=== PATIENT | female | born 1930 | race Caucasian/White ===

== ENCOUNTER 2018-02-09 17:32 | Inpatient (IN) | payer OTHER, BC ==
--- NOTE | 2018-02-09 18:08 | PDOC ---
Attending Attestation - Resident Resident Name: Maria C Chaney - ED Attending Attestation I have performed the following: I have examined & evaluated the patient, The case was reviewed & discussed with the resident, I agree w/resident's findings & plan, Exceptions are as noted - Physicial Exam PE: 02/09/18 19:43 Patient is awake and alert, frail-appearing, in mild distress; Normocephalic, atraumatic EOMI, conjunctiva are pink CTA Irregularly irregular Soft, nontender, nondistended Pelvis is stable Left lower extremity is shortened and externally rotated with pain on log roll and hip extension; + ttp along proximal femur. neurovascularly intact distally; - Medical Decision Making 02/09/18 19:45 Patient is a frail-appearing 87-year-old female with multiple comorbidities, history of atrial fibrillation on Coumadin who presented with left leg pain and deformity status post mechanical fall. In the ER, patient is awake and alert, hemodynamically stable. CT of head shows increased density along left tentorium which is unlikley traumatic. Pelvic and left hip x-rays show a displaced intratrochanteric fracture. We'll consult orthopedics. Will Place Casanova catheter and will control pain with parenteral morphine. Will hydrate. Will admit. case discussed with ortho PA. will keep npo. ORIF pending clearence. <Alhaji Yeboah - Last Filed: 02/09/18 20:03> - HPI HPI: 02/09/18 18:44 The patient is an 87 year old female with significant past medical history of A- Fib (on Coumadin in 2015, as per EMR), HLD, HTN, and CKD brought in by EMS to the ED s/p fall. The patient reports walking up a hill and fell backwards. The patient is unsure if she hit her head upon fall. She denies cp, headache, dizziness, fevers, chills, abdominal pain, nausea, vomiting, diarrhea, and constipation. She denies any changes in bowel movements or urination. - Medical Decision Making Consulted with JASMIN Corona at 19:50. Consulted with Dr. Worthy at 20:07. <Morales Gannon - Last Filed: 02/09/18 20:08> Attestations - Attestations Documentation prepared by Morales Gannon, acting as medical staff services coordinator for Alhaji Yeboah MD. <Morales Gannon - Last Filed: 02/09/18 20:08>
[2018-02-09 18:09] VITALS: BMI 21.6
--- NOTE | 2018-02-09 18:11 | PDOC ---
History of Present Illness - General History Source: Patient - History of Present Illness Initial Comments: 02/09/18 18:09 87 year old female with a PMH of AFib (as per EMR on Coumadin in 2014), HTN, HLD and CKD presents to our ED presents following a fall. Patient states she was walking uphill when she fell backwards - unsure of head trauma. Notes passerby called EMS. Patient denies chest pain, headache or dizziness. Patient denies fever, chills, abdominal pain, nausea, vomit, diarrhea or constipation. Patient denies dysuria, frequency, urgency or hematuria. Patient denies sick contacts or recent travel. Allergy: Penicillin <Maria C Chaney - Last Filed: 02/09/18 20:16> <Alhaji Yeboah - Last Filed: 02/10/18 00:15> - General Chief Complaint: Injury Stated Complaint: FALL Past History - Past Medical History Cardiac Disorders: Yes (AF) HTN: Yes - Immunization History Td Vaccination: Yes - Suicide/Smoking/Psychosocial Hx Smoking Status: No Smoking History: Never smoked Number of Cigarettes Smoked Daily: 0 Hx Alcohol Use: No Drug/Substance Use Hx: No Substance Use Type: None <Maria C Chaney - Last Filed: 02/09/18 20:16> <Alhaji Yeboah - Last Filed: 02/10/18 00:15> - Past Medical History Allergies/Adverse Reactions: Allergies Allergy/AdvReac Type Severity Reaction Status Date / Time Penicillins Allergy Verified 02/09/18 18:06 Home Medications: Ambulatory Orders Atenolol [Tenormin -] 50 mg PO DAILY 05/18/15 Atorvastatin Ca [Lipitor] 10 mg PO HS 05/18/15 Calcium Carbonate [Caltrate 600] 600 mg PO DAILY 05/18/15 Folic Acid/Multivit-Min/Lutein [Centrum Silver Chewable Tablet] 1 each PO DAILY 05/18/15 Isosorbide Mononitrate [Imdur -] 60 mg PO DAILY 05/18/15 Loratadine [Claritin -] 10 mg PO DAILY 05/18/15 Pantoprazole Sodium [Protonix] 40 mg PO DAILY 05/18/15 Warfarin Sodium [Coumadin] 3 mg PO DAILY 05/18/15 Review of Systems - Review of Systems Constitutional: No: Fever, Night Sweats HEENTM: No: Recent change in vision Respiratory: No: Cough, Shortness of Breath Cardiac (ROS): No: Chest Pain ABD/GI: No: Constipated, Nausea, Vomiting : No: Burning, Dysuria <Maria C Chaney - Last Filed: 02/09/18 20:16> *Physical Exam - Physical Exam Comments: 02/09/18 18:38 General: Alert, pelvis stable CV: S1/S2 Respiratory: non-labored respirations, CLTA B/L Abdomen: soft, non-tender MSK: LLE externally rotated/shortened w/1+ dorsalis pedis pulse, limited ROM; no midline spinal tenderness, full ROM of B/L UE Neuro: A&O x3, intact UE DTR's <Maria C Chaney - Last Filed: 02/09/18 20:16> - Vital Signs Last Vital Signs Temp Pulse Resp BP Pulse Ox 98 F 60 18 145/81 99 02/09/18 17:32 02/09/18 17:32 02/09/18 17:32 02/09/18 17:32 02/09/18 17:32 <Alhaji Yeboah - Last Filed: 02/10/18 00:15> ED Treatment Course - LABORATORY CBC & Chemistry Diagram: 02/09/18 18:00 02/09/18 18:00 <Maria C Chaney - Last Filed: 02/09/18 20:16> - LABORATORY CBC & Chemistry Diagram: 02/09/18 18:00 02/09/18 18:00 - ADDITIONAL ORDERS Additional order review: Laboratory Results 02/09/18 02/09/18 02/09/18 Unknown 18:00 18:00 PT with INR INR PTT (Actin FS) Sodium 134 L Potassium 4.4 Chloride 101 Carbon Dioxide 26 Anion Gap 7 L BUN 29 H Creatinine 1.3 H Creat Clearance w eGFR 38.57 Random Glucose 111 H Calcium 8.7 Total Bilirubin 0.8 AST 31 ALT 30 Alkaline Phosphatase 107 Total Protein 6.5 Albumin 3.5 Urine Color Yellow Urine Appearance Clear Urine pH 6.0 Ur Specific [place] 1.012 Urine Protein Negative Urine Glucose (UA) Negative Urine Ketones Negative Urine Blood 2+ H Urine Nitrite Negative Urine Bilirubin Negative Urine Urobilinogen Negative Ur Leukocyte Esterase 1+ H Urine WBC (Auto) 8 Urine RBC (Auto) 14 Ur Epithelial Cells Rare Blood Type A POSITIVE Antibody Screen Negative 02/09/18 18:00 PT with INR 22.30 H INR 1.97 H PTT (Actin FS) 37.7 H Sodium Potassium Chloride Carbon Dioxide Anion Gap BUN Creatinine Creat Clearance w eGFR Random Glucose Calcium Total Bilirubin AST ALT Alkaline Phosphatase Total Protein Albumin Urine Color Urine Appearance Urine pH Ur Specific [place] Urine Protein Urine Glucose (UA) Urine Ketones Urine Blood Urine Nitrite Urine Bilirubin Urine Urobilinogen Ur Leukocyte Esterase Urine WBC (Auto) Urine RBC (Auto) Ur Epithelial Cells Blood Type Antibody Screen 02/09/18 18:00 RBC 3.84 MCV 102.1 H MCHC 34.3 RDW 15.1 MPV 9.7 Neutrophils % 73.0 D Lymphocytes % 10.2 D Monocytes % 13.4 H Eosinophils % 2.9 Basophils % 0.5 - Medications Given in the ED: ED Medications Discontinued Medications Generic Name Dose Route Start Last Admin Trade Name Freq PRN Reason Stop Dose Admin Morphine Sulfate 2 mg 02/09/18 19:24 02/09/18 19:39 Morphine Sulfate IVPUSH 02/09/18 19:25 2 mg ONCE ONE Administration Sodium Chloride 1,000 ml 02/09/18 19:24 02/09/18 19:39 Normal Saline - IV 02/09/18 19:25 1,000 ml ONCE ONE Administration <Alhaji Yeboah - Last Filed: 02/10/18 00:15> Medical Decision Making - Medical Decision Making 02/09/18 18:19 87 year old female presents following @ fall -- likely mechanical. At presentation LLE shortened and externally rotated, 1+ dorsalis pedis pulse. Will CT head + C-spine, XR pelvis, LLE. Patient declines pain control. 02/09/18 20:04 Wet read of XR shows L trochanteric fracture; will hydrate and plan for admission for ORIF likely in 48-72 hours as patient on Warfarin 2/2 to AFib 02/09/18 20:11 Case d/w Dr. Juan Johnson, Imaging vehicle fuel systems converter, dense area on CT @ tentorium unlikely to be acute bleed, likely to be calcification 2/2 to age related changes. Patient signed out to Dr. Yeboah - patient admitted to hospitalist medicine service with consults pending to ortho and cardiology. <Maria C Chaney - Last Filed: 02/09/18 20:16> *DC/Admit/Observation/Transfer <ShivMaria C - Last Filed: 02/09/18 20:16> - Discharge Dispostion Admit: Yes <Alhaji Yeboah - Last Filed: 02/10/18 00:15> Diagnosis at time of Disposition: Hip fracture Qualifiers: Encounter type: initial encounter Fracture type: closed Laterality: left Qualified Code(s): S72.002A - Fracture of unspecified part of neck of left femur , initial encounter for closed fracture - Discharge Dispostion Condition at time of disposition: Fair
[2018-02-09 18:20] LABS: BASO % 0.5 % (0-2.0); EOS % 2.9 % (0-4.5); HEMATOCRIT 39.3 % (32.4-45.2); HEMOGLOBIN 13.5 GM/dL (10.7-15.3); LYMPH % 10.2 % (8-40); MCHC 34.3 g/dl (32.0-36.0); MEAN CELL VOLUME 102.1 fl (80-96); MEAN PLT VOLUME 9.7 fl (7.5-11.1); MONO % 13.4 % (3.8-10.2); PLATELET COUNT 136 K/MM3 (134-434); RBC 3.84 M/mm3 (3.60-5.2); RDW 15.1 % (11.6-15.6); WHITE BLOOD COUNT 7.9 K/mm3 (4.0-10.0)
[2018-02-09 18:32] LABS: INR 1.97 (0.82-1.09); PROTHROMBIN TIME (PATIENT) 22.3 SEC (9.7-13.0)
[2018-02-09 18:35] LABS: ACTIVATED PTT 37.7 SECONDS (26.9-34.4)
[2018-02-09 19:00] LABS: ALBUMIN 3.5 g/dl (3.4-5.0); ALK PHOS 107 U/L (45-117); ANION GAP 7 (8-16); BILIRUBIN,TOTAL 0.8 mg/dL (0.2-1.0); BLOOD UREA NITROGEN 29 mg/dL (7-18); CALCIUM 8.7 mg/dL (8.5-10.1); CHLORIDE 101 mmol/L (98-107); CO2 26 mmol/L (21-32); CREATININE 1.3 mg/dL (0.55-1.02); GLUCOSE,RANDOM 111 mg/dL (74-106); POTASSIUM 4.4 mmol/L (3.5-5.1); SGOT/AST 31 U/L (15-37); SGPT/ALT 30 U/L (12-78); SODIUM 134 mmol/L (136-145); TOT PROT 6.5 g/dl (6.4-8.2)
[2018-02-09] MEDS ORDERED: morphine CARPU-JECT 8 MG/1 ML DISP.SYRIN IVPUSH ONE (19:24)
[2018-02-09] MEDS ORDERED: SODIUM CHLORIDE 0.9% 500 ML INFUS.BAG IV ONE (19:24)
[2018-02-09] MEDS ORDERED: morphine SULFATE 4 MG/ML VIAL ONE (19:27)
[2018-02-09 20:06] LABS: URINE APPEARANCE CLEAR; URINE BILIRUBIN NEGATIVE (<2.0 mg/dL); URINE COLOR YELLOW; URINE GLUCOSE (UA) NEGATIVE (NEGATIVE); URINE KETONE NEGATIVE (NEGATIVE); URINE NITRITE NEGATIVE (NEGATIVE); URINE PROTEIN NEGATIVE (NEGATIVE); URINE UROBILINOGEN NEGATIVE mg/dL (0.2-1.0)
--- NOTE | 2018-02-09 20:26 | HP ---
Admitting History and Physical - Primary Care Physician PCP: Karina Kelley - Admission Chief Complaint: s/p Mechanical Fall, L- Hip Pain History of Present Illness: This is a 87 y/o woman with PMH: Afib (on Coumadin), HTN, HLD, CKD, [place]. Who presents to the ED s/p mechanical fall with L-hip pain, unable to bear weight. Patient reports while going uphill she fell backwards hitting her head. Patient denies LOC, blurred vision and dizziness. Patient reports since the fall being non-weight bearing, pain to her L- hip increased with movement. Patient denies numbness or parasthesias. Patient expressed concerns for her aged sister, that she is caring for. Last TD unknown History Source: Patient Limitations to Obtaining History: Physical Impairment (SAULT [place]) - Past Medical History Cardiovascular: Yes: AFIB, CHF, HTN, Hyperlipdemia Renal/: Yes: Renal Inusuff Heme/Onc: Yes: Anemia Musculoskeletal: Yes: Osteoarthritis - Past Surgical History Past Surgical History: Yes: Cholecystectomy - Smoking History Smoking history: Never smoked Have you smoked in the past 12 months: No Aproximately how many cigarettes per day: 0 - Alcohol/Substance Use Hx Alcohol Use: No History of Substance Use: reports: None - Social History Usual Living Arrangement: Yes: Other (With sister) ADL: Independent History of Recent Travel: No Home Medications - Allergies Allergies/Adverse Reactions: Allergies Allergy/AdvReac Type Severity Reaction Status Date / Time Penicillins Allergy Verified 02/09/18 18:06 - Home Medications Home Medications: Ambulatory Orders Atenolol [Tenormin -] 50 mg PO DAILY 05/18/15 Atorvastatin Ca [Lipitor] 10 mg PO HS 05/18/15 Calcium Carbonate [Caltrate 600] 600 mg PO DAILY 05/18/15 Folic Acid/Multivit-Min/Lutein [Centrum Silver Chewable Tablet] 1 each PO DAILY 05/18/15 Isosorbide Mononitrate [Imdur -] 60 mg PO DAILY 05/18/15 Loratadine [Claritin -] 10 mg PO DAILY 05/18/15 Pantoprazole Sodium [Protonix] 40 mg PO DAILY 05/18/15 Warfarin Sodium [Coumadin] 3 mg PO DAILY 05/18/15 Family Disease History - Family Disease History Family History: Unremarkable Review of Systems - Review of Systems Constitutional: reports: No Symptoms Eyes: reports: No Symptoms HENT: reports: No Symptoms Neck: reports: No Symptoms Cardiovascular: reports: No Symptoms Respiratory: reports: No Symptoms Gastrointestinal: reports: No Symptoms Genitourinary: reports: No Symptoms Breasts: reports: No Symptoms Reported Musculoskeletal: reports: Extremity Pain, Joint Pain Integumentary: reports: No Symptoms Neurological: reports: No Symptoms Endocrine: reports: No Symptoms Hematology/Lymphatic: reports: No Symptoms Psychiatric: reports: No Symptoms Physical Examination Vital Signs: Vital Signs Temperature 98 F 02/09/18 17:32 Pulse Rate 60 02/09/18 17:32 Respiratory Rate 18 02/09/18 17:32 Blood Pressure 145/81 02/09/18 17:32 O2 Sat by Pulse Oximetry (%) 99 02/09/18 17:32 Constitutional: Yes: No Distress, Calm, Thin Eyes: Yes: Conjunctiva Clear, EOM Intact, PERRL HENT: Yes: WNL, Atraumatic, Normocephalic, Other (TN to occiput) Neck: Yes: WNL, Supple, Trachea Midline Cardiovascular: Yes: Pulse Irregular, Murmur, S1, S2 Respiratory: Yes: Rhonchi Gastrointestinal: Yes: WNL, Normal Bowel Sounds, Soft ...Rectal Exam: Yes: Deferred Renal/: Yes: WNL Breast(s): Yes: WNL Musculoskeletal: Yes: Other (lateral L- hip pain) Extremities: Yes: External Rotation, Shortened Edema: No Peripheral Pulses WNL: Yes Integumentary: Yes: Skin Tear (left elbow) Wound/Incision: Yes: Other (dressing with dried serous drainage) Neurological: Yes: WNL, Alert, Oriented, Cran Nerves II-XII Intact. No: Loss of Sensation, Numbness, Paresthesia, Tingling ...Motor Strength: LUE, RUE, RLE Psychiatric: Yes: WNL, Alert, Oriented Labs: CBC, BMP 02/09/18 18:00 02/09/18 18:00 Current Medications Generic Name Dose Route Start Last Admin Trade Name Freq PRN Reason Stop Dose Admin Dextrose/Sodium Chloride 1,000 mls @ 100 mls/hr 02/09/18 20:30 02/10/18 05:52 D5-1/2ns - IV 100 mls/hr ASDIR ALAN Administration Morphine Sulfate 2 mg 02/09/18 20:36 02/10/18 02:00 Morphine Sulfate IVPUSH 2 mg Q4H PRN Administration PAIN LEVEL 6-10 Intake & Output 02/07/18 02/08/18 02/09/18 02/10/18 23:59 23:59 23:59 23:59 Intake Total 0 800 Output Total 900 Balance 0 -100 Weight 58.967 kg 58.967 kg Imaging - Results Chest X-ray: Image Reviewed X-ray: Report Reviewed, Image Reviewed EKG: Image Reviewed Problem List - Problems (1) Hip fracture Assessment/Plan: - Likely secondary to mechanical fall - Ortho following- tentative OR tomorrow - Appreciate Cardiology consult- surgical clearance - Neurovascular checks - Morphine Sulfate prn - Repeat CBC, BMP in am - NPO - Gentle IVF - Hold Coumadin Code(s): S72.009A - FRACTURE OF UNSP PART OF NECK OF UNSP FEMUR, INIT Qualifiers: Encounter type: initial encounter Fracture type: closed Laterality: left Qualified Code(s): S72.002A - Fracture of unspecified part of neck of left femur, initial encounter for closed fracture (2) Fall Assessment/Plan: - s/p mechanical fall - Femur Xray- L-intertrochanteric fx, comminuted - Hip/Pelvis- image reviewed - CT Neck- no dislocation, no fx, Grade 1 anterolisthesis C7-T1 likely Chronic - Fall Precautions - Pain Mgmt - Consider STR - Monitor CBC, BMP Code(s): W19.XXXA - UNSPECIFIED FALL, INITIAL ENCOUNTER (3) Afib Assessment/Plan: - EKG- rate controlled - [id number] - INR 1.97 - Hold Coumadin secondary to- OR - Series INRs Code(s): I48.91 - UNSPECIFIED ATRIAL FIBRILLATION (4) HTN (hypertension) Assessment/Plan: - Stable - Monitor BP - Continue home meds - Monitor renal function Code(s): I10 - ESSENTIAL (PRIMARY) HYPERTENSION (5) HLD (hyperlipidemia) Assessment/Plan: - Continue home med Code(s): E78.5 - HYPERLIPIDEMIA, UNSPECIFIED (6) Renal insufficiency Assessment/Plan: - Cr 1.3 at baseline - Continue to monitor BMP - Avoid nephrotoxic drugs Code(s): N28.9 - DISORDER OF KIDNEY AND URETER, UNSPECIFIED (7) Caregiver burden Assessment/Plan: - Patient is the sole caregiver for her aged sister and is concerned about her care - Social Work Consult - Case Management Consult Code(s): Z63.6 - DEPENDENT RELATIVE NEEDING CARE AT HOME (8) DVT prophylaxis Assessment/Plan: - SCDs - Hold Coumadin / pending surgery Code(s): TOS8777 - Assessment/Plan This is a 87 y/o woman PMH Afib (on Coumadin), HLD, HTN, CKD. Admitted for L- Trochanteric Fx. Visit type - Emergency Visit Emergency Visit: Yes ED Registration Date: 02/10/18 Care time: The patient presented to the Emergency Department on the above date and was hospitalized for further evaluation of their emergent condition. - New Patient This patient is new to me today: Yes Date on this admission: 02/10/18 - Critical Care Critical Care patient: No Hospitalist Screening - Colonoscopy Questionnaire Colonoscopy Questionnaire: Colonoscopy Questionnaire - Patient: 50 - 75 years old and never had a screening colonoscopy: No History of colon or rectal polyps, or CA: No History of IBD, Crohn's disease or UC: No History of abdominal radiation therapy as a child: No - Relative: 1 with colon or rectal CA, or polyps at age 60 or younger: No Colon or rectal CA diagnosed at age 45 or younger: No Multiple relatives with colon or rectal CA: No - Outcome: Screening Result: Negative Screen
[2018-02-09 20:31] LABS: URINE LEUK ESTERASE 1+ (NEGATIVE)
[2018-02-09 20:34] LABS: EPI CELLS RARE /HPF (FEW)
[2018-02-09] MEDS: DEXTROSE 5%-0.45% SALINE 1,000 ML IV SCH (20:35)
[2018-02-09] MEDS ORDERED: morphine SULFATE 4 MG/ML VIAL IVPUSH PRN (20:36)
--- NOTE | 2018-02-10 00:32 | CONSULT ---
Consult Consult Specialty:: orthopedics Reason for Consultation:: left hip - History of Present Illness Chief Complaint: left hip pain x1 day History of Present Illness: 87y/o female c/o left hip pain since yesterday. She fell after losing her balance on the way to the pharmacy and was unable to walk. She came to the ER and was diagnosed with a left hip fracture. Pain is worse with motion and better with rest. No other associated, aggravating or relieving factors. Denies any numbness or tingling. Pain does not radiate. - History Source History Provided By: Patient, Medical Record - Past Medical History Cardio/Vascular: Yes: AFIB, CHF, HTN, Hyperlipdemia Renal/: Yes: Renal Inusuff Musculoskeletal: Yes: Osteoarthritis - Alcohol/Substance Use Hx Alcohol Use: No History of Substance Use: reports: None - Smoking History Smoking history: Never smoked Have you smoked in the past 12 months: No Aproximately how many cigarettes per day: 0 - Social History ADL: Independent History of Recent Travel: No Home Medications - Allergies Allergies/Adverse Reactions: Allergies Allergy/AdvReac Type Severity Reaction Status Date / Time Penicillins Allergy Verified 02/09/18 18:06 - Home Medications Home Medications: Ambulatory Orders Atenolol [Tenormin -] 50 mg PO DAILY 05/18/15 Atorvastatin Ca [Lipitor] 10 mg PO HS 05/18/15 Calcium Carbonate [Caltrate 600] 600 mg PO DAILY 05/18/15 Folic Acid/Multivit-Min/Lutein [Centrum Silver Chewable Tablet] 1 each PO DAILY 05/18/15 Isosorbide Mononitrate [Imdur -] 60 mg PO DAILY 05/18/15 Loratadine [Claritin -] 10 mg PO DAILY 05/18/15 Pantoprazole Sodium [Protonix] 40 mg PO DAILY 05/18/15 Warfarin Sodium [Coumadin] 3 mg PO DAILY 05/18/15 Review of Systems - Review of Systems Constitutional: reports: No Symptoms Eyes: reports: No Symptoms HENT: reports: No Symptoms Neck: reports: No Symptoms Cardiovascular: reports: No Symptoms Respiratory: reports: No Symptoms Gastrointestinal: reports: No Symptoms Genitourinary: reports: No Symptoms Breasts: reports: No Symptoms Reported Musculoskeletal: reports: No Symptoms Integumentary: reports: No Symptoms Neurological: reports: No Symptoms Endocrine: reports: No Symptoms Hematology/Lymphatic: reports: No Symptoms Psychiatric: reports: No Symptoms Physical Exam Vital Signs: Vital Signs Temperature 98 F 02/09/18 17:32 Pulse Rate 60 02/09/18 17:32 Respiratory Rate 18 02/09/18 17:32 Blood Pressure 145/81 02/09/18 17:32 O2 Sat by Pulse Oximetry (%) 99 02/09/18 17:32 Constitutional: Yes: Well Nourished, No Distress, Calm Musculoskeletal: Yes: Other (Left hip: Mild edema of the hip. Mild diffuse tenderness along the groin. Pain with motion of the hip. LLE shortened and externally rotated. Compartments soft. NVID. Calf soft, nontender.) Labs: CBC, BMP 02/09/18 18:00 02/09/18 18:00 Imaging - Results X-ray: Report Reviewed, Image Reviewed (Left basicervical fracture hip) Assessment/Plan #1 left hip fracture -Discussed today's findings and treatment options with the patient. Recommend surgery, IT nail. RBA were discussed. The patient would like to proceed. -Awaiting medical clearance, PT will remain NPO, plan on surgery sunday pending clearance -INR 1.97 -Pain control -SCD's -Stop Coumadin
[2018-02-10] MEDS: DEXTROSE 5%-0.45% SALINE 1,000 ML IV SCH (05:52)
[2018-02-10] MEDS ORDERED: TETANUS AND DIPHTHERIA TOXOID 0.5 ML DISP.SYRIN IM ONE (08:12)
--- NOTE | 2018-02-10 08:37 | CON.CARD ---
Consult Consult Specialty:: Cardiology Referred by:: Dr Kelley Reason for Consultation:: preop evaluation - History of Present Illness Chief Complaint: fall History of Present Illness: The patient is an 87 y/o woman with a history of chronic atrial fibrillation on Coumadin, HTN, chol, CKD who was admitted 02/09/18 with a mechanical fall wand L- hip fracture. She has no history of [place], CVA, angina, chf. No orthopnea, pnd or edema. Baseline exercise tolerance is limited by DJD but she is active. No palpitations. Denies syncope or LOC. She is awaiting ORIF today. - History Source History Provided By: Patient, Family Member, Medical Record - Past Medical History Cardio/Vascular: Yes: AFIB, CHF, HTN, Hyperlipdemia Renal/: Yes: Renal Inusuff Musculoskeletal: Yes: Osteoarthritis - Past Surgical History Past Surgical History: Yes: Cholecystectomy - Alcohol/Substance Use Hx Alcohol Use: No History of Substance Use: reports: None - Smoking History Smoking history: Never smoked Have you smoked in the past 12 months: No Aproximately how many cigarettes per day: 0 - Social History ADL: Independent History of Recent Travel: No Home Medications - Allergies Allergies/Adverse Reactions: Allergies Allergy/AdvReac Type Severity Reaction Status Date / Time Penicillins Allergy Verified 02/09/18 18:06 - Home Medications Home Medications: Ambulatory Orders Atenolol [Tenormin -] 50 mg PO DAILY 05/18/15 Atorvastatin Ca [Lipitor] 10 mg PO HS 05/18/15 Calcium Carbonate [Caltrate 600] 600 mg PO DAILY 05/18/15 Folic Acid/Multivit-Min/Lutein [Centrum Silver Chewable Tablet] 1 each PO DAILY 05/18/15 Isosorbide Mononitrate [Imdur -] 60 mg PO DAILY 05/18/15 Loratadine [Claritin -] 10 mg PO DAILY 05/18/15 Pantoprazole Sodium [Protonix] 40 mg PO DAILY 05/18/15 Warfarin Sodium [Coumadin] 3 mg PO DAILY 05/18/15 Vital Signs: Vital Signs Temperature 98.3 F 02/10/18 06:00 Pulse Rate 75 02/10/18 06:00 Respiratory Rate 20 02/10/18 06:00 Blood Pressure 126/68 02/10/18 06:00 O2 Sat by Pulse Oximetry (%) 98 02/10/18 00:15 Constitutional: Yes: No Distress Eyes: Yes: EOM Intact HENT: Yes: Atraumatic, Normocephalic Neck: Yes: Trachea Midline Respiratory: Yes: CTA Bilaterally Gastrointestinal: Yes: Normal Bowel Sounds, Soft Cardiovascular: Yes: Pulse Irregular JVD: No Carotid Bruit: No PMI: Non-Displaced Heart Sounds: Yes: S1, S2 Murmur: Yes: Systolic Murmur, Grade 1 Extremities: Yes: External Rotation (left leg) Edema: No Peripheral Pulses WNL: Yes - Other Data Labs, Other Data: CBC, BMP 02/09/18 18:00 02/09/18 18:00 INR, PTT INR 1.97 (0.82-1.09) H 02/09/18 18:00 Imaging - Results Chest X-ray: Report Reviewed (cm asao, lt base atalectasis ruq clips) EKG: Report Reviewed (afib @ 58 bpm, nssttw changes.) Problem List - Problems (1) Afib Assessment/Plan: Continue atenolol for rate control perioperatively. Hold coumadin until stable postop, use lovenox initially postop per protocol for DVT prophylaxis. Restart coumadin for inr 2-3 when stable, or use Eliquis 2.5 bid for atrial fib stroke prevention. Code(s): I48.91 - UNSPECIFIED ATRIAL FIBRILLATION (2) Preop cardiovascular exam Assessment/Plan: There are no cardiac contraindications to surgery. The patient is at intermediate risk due to age, but I believe that the benefits significantly outweigh the small risk. I have discussed this with the patient and her sister who agree. She is medically optimized for the procedure. Code(s): Z01.810 - ENCOUNTER FOR PREPROCEDURAL CARDIOVASCULAR EXAMINATION
[2018-02-10] MEDS ORDERED: METOPROLOL TARTRATE 5 MG/5 ML VIAL IVPB PRN ×2 (09:45→15:11)
--- NOTE | 2018-02-10 10:43 | EKG ---
Test Reason : Blood Pressure : / mmHG Vent. Rate : 058 BPM Atrial Rate : 258 BPM P-R Int : 000 ms QRS Dur : 080 ms QT Int : 432 ms P-R-T Axes : 000 050 017 degrees QTc Int : 424 ms ATRIAL FIBRILLATION WITH SLOW VENTRICULAR RESPONSE LOW VOLTAGE QRS ABNORMAL ECG WHEN COMPARED WITH ECG OF 18-MAY-2015 21:35, NONSPECIFIC T WAVE ABNORMALITY NO LONGER EVIDENT IN LATERAL LEADS Confirmed by SHMUEL WHITAKER, LANI ([id number]) on 02/10/2018 10:43:20 AM Referred By: Confirmed By:LANI MI MD
[2018-02-10 10:46] LABS: HEMOGLOBIN 13.5 GM/dL (10.7-15.3); MCH 35.4 pg (25.7-33.7); MCHC 34.5 g/dl (32.0-36.0); MEAN CELL VOLUME 102.5 fl (80-96); MEAN PLT VOLUME 9.1 fl (7.5-11.1); PLATELET COUNT 130 K/MM3 (134-434); RBC 3.81 M/mm3 (3.60-5.2); RDW 15.5 % (11.6-15.6); WHITE BLOOD COUNT 8.8 K/mm3 (4.0-10.0)
[2018-02-10 11:01] LABS: INR 2.1 (0.82-1.09); PROTHROMBIN TIME (PATIENT) 23.7 SEC (9.7-13.0)
[2018-02-10 11:12] LABS: ALBUMIN 3.6 g/dl (3.4-5.0); ANION GAP 5 (8-16); BLOOD UREA NITROGEN 21 mg/dL (7-18); CALCIUM 8.6 mg/dL (8.5-10.1); CHLORIDE 103 mmol/L (98-107); CO2 28 mmol/L (21-32); CREATININE 1.2 mg/dL (0.55-1.02); GLUCOSE,RANDOM 119 mg/dL (74-106); POTASSIUM 4.1 mmol/L (3.5-5.1); SGOT/AST 27 U/L (15-37); SGPT/ALT 27 U/L (12-78); SODIUM 136 mmol/L (136-145); TOT PROT 6.8 g/dl (6.4-8.2)
[2018-02-10 11:13] LABS: ALK PHOS 115 U/L (45-117)
[2018-02-10] MEDS ORDERED: PHYTONADIONE 10 MG/1 ML AMP SQ ONE (11:45)
--- NOTE | 2018-02-10 11:53 | PN ---
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 Acute left femoral intertrochanteric fracture Seen by Cardiology-cleared pre-operatively Seen by JASMIN Corona- may do surgery this afternoon INR-2.1, Vit K 5 mg SQ x 1 ordered - Current Medication List Current Medications: Active Medications Dextrose/Sodium Chloride (D5-1/2ns -) 1,000 mls @ 100 mls/hr IV ASDIR ALAN Last Admin: 02/10/18 05:52 Dose: 100 mls/hr Metoprolol Tartrate (Lopressor Injection -) 5 mg IVPB Q4H PRN PRN Reason: HYPERTENSION Morphine Sulfate (Morphine Sulfate) 2 mg IVPUSH Q4H PRN PRN Reason: PAIN LEVEL 6-10 Last Admin: 02/10/18 02:00 Dose: 2 mg Phytonadione (Aqua Mephyton Injection -) 5 mg SQ ONCE ONE Stop: 02/10/18 11:46 - Objective Vital Signs: Vital Signs Temperature 98.2 F 02/10/18 09:30 Pulse Rate 70 02/10/18 09:30 Respiratory Rate 20 02/10/18 09:30 Blood Pressure 152/75 02/10/18 09:30 O2 Sat by Pulse Oximetry (%) 98 02/10/18 00:15 Constitutional: Yes: Well Nourished, No Distress, Anxious Cardiovascular: Yes: Pulse Irregular Respiratory: Yes: Regular Gastrointestinal: Yes: Normal Bowel Sounds, Soft Musculoskeletal: Yes: Other (lef hip pain) Edema: No Neurological: Yes: Alert, Oriented Psychiatric: Yes: Alert, Oriented Labs: CBC, BMP 02/10/18 10:34 INR, PTT INR 2.10 (0.82-1.09) H 02/10/18 10:34 Problem List - Problems (1) Caregiver burden Assessment/Plan: -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 Code(s): Z63.6 - DEPENDENT RELATIVE NEEDING CARE AT HOME (2) Afib Assessment/Plan: -hold warfarin -INR-2.1 -Vit K 5 mg SQ once Code(s): I48.91 - UNSPECIFIED ATRIAL FIBRILLATION (3) Fall Assessment/Plan: -fall outside her house [place] to steep [place] road, lost her balance -No other falls in past 1 year Code(s): W19.XXXA - UNSPECIFIED FALL, INITIAL ENCOUNTER (4) Hip fracture Assessment/Plan: -Acute left femoral intertrochanteric fracture -Ortho on board -Surgical intervention -Cleared by Cardiology Code(s): S72.009A - FRACTURE OF UNSP PART OF NECK OF UNSP FEMUR, INIT Qualifiers: Encounter type: initial encounter Fracture type: closed Laterality: left Qualified Code(s): S72.002A - Fracture of unspecified part of neck of left femur, initial encounter for closed fracture (5) MAKAYLA (acute kidney injury) Assessment/Plan: IVF monitor trend Code(s): N17.9 - ACUTE KIDNEY FAILURE, UNSPECIFIED Assessment/Plan see problem list
[2018-02-10] MEDS ORDERED: GLYCOPYRROLATE 0.2 MG/1 ML VIAL ONE (13:19)
[2018-02-10] MEDS ORDERED: LIDOCAINE HCL/PF 2% SDV 5ML VIAL ONE (13:19)
[2018-02-10] MEDS ORDERED: NEOSTIGMINE METHYLSULFATE 0.5 MG/ML - 10 ML MDV ONE (13:20)
[2018-02-10] MEDS ORDERED: ROCURONIUM BROMIDE 50 MG/5 ML VIAL ONE (13:22)
[2018-02-10] MEDS ORDERED: CLINDAMYCIN PHOSPHATE 600 MG/4 ML VIAL ONE (13:42)
[2018-02-10] MEDS ORDERED: CLINDAMYCIN 600 MG PREMIX BAG IVPB ONE (13:46)
[2018-02-10] MEDS ORDERED: ePHEDrine SULFATE 50 MG/1 ML AMPULE ONE (13:50)
[2018-02-10 13:58] LABS: PLATELET ESTIMATE DECREASED
--- NOTE | 2018-02-10 14:51 | OP ---
Operative Note - Note: Operative Date: 02/10/18 Pre-Operative Diagnosis: left basicervical hip fracture Operation: left hip intramedullary nail Implants: [place] gamma 3 [id number] with 95mm proximal locking screw and 37.5mm distal locking screw Post-Operative Diagnosis: Same as Pre-op Surgeon: Sampson Doan [place] Master: Tomás Corona Anesthesia: General Estimated Blood Loss (mls): 150 Operative Report Dictated: Yes
[2018-02-10] MEDS ORDERED: ONDANSETRON 4 MG/2 ML VIAL IVPUSH PRN (14:55)
[2018-02-10] MEDS ORDERED: LACTATED RINGERS SOLUTION 1,000 ML IV SCH (15:00)
[2018-02-10] MEDS ORDERED: DEXTROSE 5%-0.45% SALINE 1,000 ML IV SCH (15:11)
[2018-02-10] MEDS ORDERED: morphine SULFATE 4 MG/ML VIAL IVPUSH PRN (15:11)
[2018-02-10] MEDS: ATORVASTATIN CA 10 MG TABLET (FP) PO SCH (21:07)
[2018-02-10] MEDS: DOCUSATE SODIUM 100 MG CAPSULE (FP) PO SCH (21:07)
[2018-02-10] MEDS ORDERED: ATORVASTATIN CA 10 MG TABLET (FP) PO SCH (22:00)
[2018-02-11] MEDS: DOCUSATE SODIUM 100 MG CAPSULE (FP) PO SCH ×3 (06:35→22:30)
[2018-02-11 07:05] LABS: BASO % 0.1 % (0-2.0); EOS % 0.5 % (0-4.5); HEMATOCRIT 32.6 % (32.4-45.2); HEMOGLOBIN 11.1 GM/dL (10.7-15.3); LYMPH % 3.4 % (8-40); MCH 35.4 pg (25.7-33.7); MCHC 34.2 g/dl (32.0-36.0); MEAN CELL VOLUME 103.7 fl (80-96); MEAN PLT VOLUME 9.2 fl (7.5-11.1); MONO % 12.7 % (3.8-10.2); NEUT % 83.3 % (42.8-82.8); PLATELET COUNT 119 K/MM3 (134-434); RBC 3.15 M/mm3 (3.60-5.2)
[2018-02-11 07:27] LABS: ALBUMIN 2.8 g/dl (3.4-5.0); ANION GAP 5 (8-16); BILIRUBIN,TOTAL 1.6 mg/dL (0.2-1.0); BLOOD UREA NITROGEN 21 mg/dL (7-18); CALCIUM 7.9 mg/dL (8.5-10.1); CHLORIDE 102 mmol/L (98-107); CO2 27 mmol/L (21-32); CREATININE 1.2 mg/dL (0.55-1.02); GLUCOSE,RANDOM 148 mg/dL (74-106); POTASSIUM 4.4 mmol/L (3.5-5.1); SGOT/AST 23 U/L (15-37); SGPT/ALT 22 U/L (12-78); SODIUM 134 mmol/L (136-145); TOT PROT 5.4 g/dl (6.4-8.2)
[2018-02-11 07:28] LABS: ALK PHOS 85 U/L (45-117)
[2018-02-11 07:29] LABS: INR 1.92 (0.82-1.09); PROTHROMBIN TIME (PATIENT) 21.7 SEC (9.7-13.0)
--- NOTE | 2018-02-11 08:48 | PN ---
Progress Note, Physician - Current Medication List Current Medications: Active Medications Atenolol (Tenormin -) 50 mg PO DAILY [facility] Atorvastatin Calcium (Lipitor -) 10 mg PO HS [facility] Last Admin: 02/10/18 21:07 Dose: 10 mg Calcium Carbonate (Os-Joel 500mg -) 500 mg PO DAILY [facility] Docusate Sodium (Colace -) 100 mg PO TID [facility] Last Admin: 02/11/18 06:35 Dose: 100 mg Dextrose/Sodium Chloride (D5-1/2ns -) 1,000 mls @ 100 mls/hr IV ASDIR [facility] Last Admin: 02/10/18 15:50 Dose: 0 mls Isosorbide Mononitrate (Imdur -) 60 mg PO DAILY [facility] Loratadine (Claritin -) 10 mg PO DAILY [facility] Metoprolol Tartrate (Lopressor Injection -) 5 mg IVPB Q4H PRN PRN Reason: HYPERTENSION Morphine Sulfate (Morphine Sulfate) 2 mg IVPUSH Q4H PRN PRN Reason: PAIN LEVEL 6-10 Multivitamins/Minerals/Vitamin C (Tab-A-Vit -) 1 tab PO DAILY [facility] Ondansetron HCl (Zofran Injection) 4 mg IVPUSH Q6H PRN PRN Reason: NAUSEA AND/OR VOMITING Pantoprazole Sodium (Protonix -) 40 mg PO DAILY [facility] - Objective Vital Signs: Vital Signs Temperature 97.8 F 02/11/18 05:00 Pulse Rate 109 H 02/11/18 05:00 Respiratory Rate 18 02/11/18 05:00 Blood Pressure 122/63 02/11/18 05:00 O2 Sat by Pulse Oximetry (%) 96 02/10/18 21:00 Cardiovascular: Yes: S1, S2 Respiratory: Yes: Regular, CTA Bilaterally Gastrointestinal: Yes: Normal Bowel Sounds, Soft Wound/Incision: Yes: Dressing Dry and Intact Labs: CBC, BMP 02/11/18 06:55 02/11/18 06:55 INR, PTT INR 1.92 (0.82-1.09) H 02/11/18 06:55 Assessment/Plan - Problems (1) Caregiver burden Assessment/Plan: -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 Code(s): Z63.6 - DEPENDENT RELATIVE NEEDING CARE AT HOME (2) Afib Assessment/Plan: -Restart warfarin -INR-1.9-- -Vit K 5 mg SQ once given preop Code(s): I48.91 - UNSPECIFIED ATRIAL FIBRILLATION (3) Fall Assessment/Plan: -fall outside her house [place], lost her balance -No other falls in past 1 year (4) Hip fracture Assessment/Plan: -Acute left femoral intertrochanteric fracture -Ortho on board -Surgical intervention -Cleared by Cardiology Operative Date: 02/10/18 Pre-Operative Diagnosis: left basicervical hip fracture Operation: left hip intramedullary nail Implants: Nvidia gamma 3 [id number] with 95mm proximal locking screw and 37.5mm distal locking screw Post-Operative Diagnosis: Same as Pre-op Code(s): S72.009A - FRACTURE OF UNSP PART OF NECK OF UNSP FEMUR, INIT Qualifiers: Encounter type: initial encounter Fracture type: closed Laterality: left Qualified Code(s): S72.002A - Fracture of unspecified part of neck of left femur, initial encounter for closed fracture (5) MAKAYLA (acute kidney injury) Assessment/Plan: DC IVF monitor trend Code(s): N17.9 - ACUTE KIDNEY FAILURE, UNSPECIFIED
[2018-02-11] MEDS ORDERED: CALCIUM (OYSTER SHELL) 500 MG TABLET (FP) PO SCH (10:00)
[2018-02-11] MEDS ORDERED: ISOSORBIDE MONONITRATE 60 MG TAB.SR.24H (FP) PO SCH (10:00)
[2018-02-11] MEDS ORDERED: MULTIVITAMINS (DAILY MVI) TABLET (FP) PO SCH (10:00)
[2018-02-11] MEDS ORDERED: ATENOLOL 50 MG TABLET (FP) PO SCH (10:00)
[2018-02-11] MEDS ORDERED: PANTOPRAZOLE 40 MG TABLET (FP) PO SCH (10:00)
[2018-02-11] MEDS ORDERED: LORATADINE 10 MG TABLET PO SCH (10:00)
--- NOTE | 2018-02-11 10:05 | PN ---
Progress Note, Physician Chief Complaint: Pt. pain controlled, no anesthesia complaints - Current Medication List Current Medications: Active Medications Atenolol (Tenormin -) 50 mg PO DAILY [facility] Atorvastatin Calcium (Lipitor -) 10 mg PO HS [facility] Last Admin: 02/10/18 21:07 Dose: 10 mg Calcium Carbonate (Os-Joel 500mg -) 500 mg PO DAILY [facility] Docusate Sodium (Colace -) 100 mg PO TID [facility] Last Admin: 02/11/18 06:35 Dose: 100 mg Dextrose/Sodium Chloride (D5-1/2ns -) 1,000 mls @ 100 mls/hr IV ASDIR [facility] Last Admin: 02/10/18 15:50 Dose: 0 mls Isosorbide Mononitrate (Imdur -) 60 mg PO DAILY [facility] Loratadine (Claritin -) 10 mg PO DAILY [facility] Metoprolol Tartrate (Lopressor Injection -) 5 mg IVPB Q4H PRN PRN Reason: HYPERTENSION Morphine Sulfate (Morphine Sulfate) 2 mg IVPUSH Q4H PRN PRN Reason: PAIN LEVEL 6-10 Multivitamins/Minerals/Vitamin C (Tab-A-Vit -) 1 tab PO DAILY [facility] Ondansetron HCl (Zofran Injection) 4 mg IVPUSH Q6H PRN PRN Reason: NAUSEA AND/OR VOMITING Pantoprazole Sodium (Protonix -) 40 mg PO DAILY [facility] - Objective Vital Signs: Vital Signs Temperature 97.8 F 02/11/18 05:00 Pulse Rate 109 H 02/11/18 05:00 Respiratory Rate 18 02/11/18 05:00 Blood Pressure 122/63 02/11/18 05:00 O2 Sat by Pulse Oximetry (%) 96 02/10/18 21:00 Constitutional: Yes: Well Nourished, No Distress, Calm Musculoskeletal: Yes: WNL Neurological: Yes: WNL, Alert, Oriented Labs: CBC, BMP 02/11/18 06:55 02/11/18 06:55 INR, PTT INR 1.92 (0.82-1.09) H 02/11/18 06:55 Assessment/Plan POD#1 s/p Left gamma nail under spinal. Doing well. D/C from anesthesia care.
[2018-02-11] MEDS: oxyCODONE HCL 5 MG TABLET PO PRN ×2 (11:46→17:55)
[2018-02-11] MEDS: MULTIVITAMINS (DAILY MVI) TABLET (FP) PO SCH (11:50)
[2018-02-11] MEDS: LORATADINE 10 MG TABLET PO SCH (11:50)
[2018-02-11] MEDS: CALCIUM (OYSTER SHELL) 500 MG TABLET (FP) PO SCH (11:51)
[2018-02-11] MEDS: ATENOLOL 50 MG TABLET (FP) PO SCH (11:51)
[2018-02-11] MEDS: ISOSORBIDE MONONITRATE 60 MG TAB.SR.24H (FP) PO SCH (11:51)
[2018-02-11] MEDS: PANTOPRAZOLE 40 MG TABLET (FP) PO SCH (11:51)
--- NOTE | 2018-02-11 14:23 | PN ---
Progress Note, Physician Chief Complaint: Cardiology FU No dyspnea. POD 1 surgery. History of Present Illness: 87 y/o woman with a history of chronic atrial fibrillation on Coumadin, HTN, chol, CKD who was admitted 02/09/18 with a mechanical fall wand L-hip fracture. She has no history of MO, CVA, angina, chf. No orthopnea, pnd or edema. Baseline exercise tolerance is limited by DJD but she is active. No palpitations. Denies syncope or LOC. - Current Medication List Current Medications: Active Medications Atenolol (Tenormin -) 50 mg PO DAILY [facility] Last Admin: 02/11/18 11:51 Dose: 50 mg Atorvastatin Calcium (Lipitor -) 10 mg PO HS [facility] Last Admin: 02/10/18 21:07 Dose: 10 mg Benzocaine/Menthol (Cepacol Lozenge -) 1 each MM QID PRN PRN Reason: SORE THROAT Calcium Carbonate (Os-Joel 500mg -) 500 mg PO DAILY [facility] Last Admin: 02/11/18 11:51 Dose: 500 mg Docusate Sodium (Colace -) 100 mg PO TID [facility] Last Admin: 02/11/18 13:26 Dose: 100 mg Isosorbide Mononitrate (Imdur -) 60 mg PO DAILY [facility] Last Admin: 02/11/18 11:51 Dose: 60 mg Loratadine (Claritin -) 10 mg PO DAILY [facility] Last Admin: 02/11/18 11:50 Dose: 10 mg Morphine Sulfate (Morphine Sulfate) 2 mg IVPUSH Q4H PRN PRN Reason: PAIN LEVEL 6-10 Multivitamins/Minerals/Vitamin C (Tab-A-Vit -) 1 tab PO DAILY [facility] Last Admin: 02/11/18 11:50 Dose: 1 tab Ondansetron HCl (Zofran Injection) 4 mg IVPUSH Q6H PRN PRN Reason: NAUSEA AND/OR VOMITING Oxycodone HCl (Roxicodone -) 5 mg PO Q4H PRN PRN Reason: PAIN LEVEL 6-10 Last Admin: 02/11/18 11:46 Dose: 5 mg Pantoprazole Sodium (Protonix -) 40 mg PO DAILY [facility] Last Admin: 02/11/18 11:51 Dose: 40 mg Warfarin Sodium (Coumadin -) 3 mg PO DAILY@1800 [facility] - Objective Vital Signs: Vital Signs Temperature 98.9 F 02/11/18 10:00 Pulse Rate 100 H 02/11/18 10:00 Respiratory Rate 18 02/11/18 10:00 Blood Pressure 118/66 02/11/18 10:00 O2 Sat by Pulse Oximetry (%) 96 02/11/18 09:00 Constitutional: Yes: Well Nourished, No Distress, Calm Eyes: Yes: Conjunctiva Clear HENT: Yes: Atraumatic, Normocephalic Neck: Yes: Supple, Trachea Midline Cardiovascular: Yes: Pulse Irregular, S1, S2. No: Bruit, JVD, S3, S4 Respiratory: Yes: Regular, CTA Bilaterally Gastrointestinal: Yes: Normal Bowel Sounds, Soft Edema: No Labs: CBC, BMP 02/11/18 06:55 02/11/18 06:55 INR, PTT INR 1.92 (0.82-1.09) H 02/11/18 06:55 Problem List - Problems (1) MAKAYLA (acute kidney injury) Code(s): N17.9 - ACUTE KIDNEY FAILURE, UNSPECIFIED (2) Preop cardiovascular exam Code(s): Z01.810 - ENCOUNTER FOR PREPROCEDURAL CARDIOVASCULAR EXAMINATION (3) Afib Code(s): I48.91 - UNSPECIFIED ATRIAL FIBRILLATION Assessment/Plan Her Afib is controlled. Resuming coumadin to a goal INR 2-3 Continue Atenolol.
[2018-02-11] MEDS: BENZOCAINE/MENTH/CETYLPYRD CL 1 EACH LOZENGE MM PRN ×2 (14:32→20:38)
[2018-02-11] MEDS: WARFARIN NA 3 MG TABLET PO SCH (17:55)
--- NOTE | 2018-02-11 18:05 | PN ---
Progress Note (short form) - Note Progress Note: 87F s/p IM nail L hip pod 1 -comf in chair -pain well controlled Last Vital Signs Temp Pulse Resp BP Pulse Ox 98.4 F 100 H 18 105/58 96 02/11/18 14:06 02/11/18 15:57 02/11/18 15:57 02/11/18 14:06 02/11/18 09:00 LLE dressings CDI calves soft NT NVID Abnormal Lab Results 02/11/18 02/11/18 02/11/18 06:55 06:55 06:55 WBC 11.0 H RBC 3.15 L MCV 103.7 H MCH 35.4 H Plt Count 119 L Neutrophils % 83.3 H Lymphocytes % 3.4 L D Monocytes % 12.7 H PT with INR 21.70 H INR 1.92 H Sodium 134 L Anion Gap 5 L BUN 21 H Creatinine 1.2 H Random Glucose 148 H Calcium 7.9 L Total Bilirubin 1.6 H Total Protein 5.4 L Albumin 2.8 L a/p: POD 1 L femoral nail -ok to continue warfarin for anticoag/DVT proph -oob to chair -wbat -PT -f/u AM cbc -follow up tachycardia
--- NOTE | 2018-02-11 18:28 | CONSULT ---
Consult - text type - Consultation Consultation Note: Renal Consult for CKD/AKD This is a 87 year old woman with PMhx of Afib on Coumadin, Hypertension, HLD, CKD who presented s/p fall with femur fracture with Cr of 1.2. Pt denies any hx of CKD. Making urine w/o difficultly. No SOB, chest pain, abd pain, N/V/D. Denies any NSAID use. PMhx: as above Allergies: NKDA Family Hx: NC Social Hx: No T/A/D ROS: as per HPI Home Medications Medication Instructions Recorded Atenolol [Tenormin -] 50 mg PO DAILY 05/18/15 Atorvastatin Ca [Lipitor] 10 mg PO HS 05/18/15 Calcium Carbonate [Caltrate 600] 600 mg PO DAILY 05/18/15 Folic Acid/Multivit-Min/Lutein 1 each PO DAILY 05/18/15 [Centrum Silver Chewable Tablet] Isosorbide Mononitrate [Imdur -] 60 mg PO DAILY 05/18/15 Loratadine [Claritin -] 10 mg PO DAILY 05/18/15 Pantoprazole Sodium [Protonix] 40 mg PO DAILY 05/18/15 Warfarin Sodium [Coumadin] 3 mg PO DAILY 05/18/15 Vital Signs Temperature 98.4 F 02/11/18 14:06 Pulse Rate 100 H 02/11/18 15:57 Respiratory Rate 18 02/11/18 15:57 Blood Pressure 105/58 02/11/18 14:06 O2 Sat by Pulse Oximetry (%) 96 02/11/18 09:00 Intake & Output 02/08/18 02/09/18 02/10/18 02/11/18 23:59 23:59 23:59 23:59 Intake Total 0 1965 2500 Output Total 1810 200 Balance 0 155 2300 Weight 58.967 kg 58.967 kg NAD awake and alert RRR, No M/R CTA no rales or wheeze soft NT/ND No LE edema CBC, BMP 02/11/18 06:55 02/11/18 06:55 Current Medications Atenolol (Tenormin -) 50 mg PO DAILY [facility] Last Admin: 02/11/18 11:51 Dose: 50 mg Atorvastatin Calcium (Lipitor -) 10 mg PO [facility] Last Admin: 02/10/18 21:07 Dose: 10 mg Benzocaine/Menthol (Cepacol Lozenge -) 1 each MM QID PRN PRN Reason: SORE THROAT Last Admin: 02/11/18 14:32 Dose: 1 each Calcium Carbonate (Os-Joel 500mg -) 500 mg PO DAILY [facility] Last Admin: 02/11/18 11:51 Dose: 500 mg Docusate Sodium (Colace -) 100 mg PO TID [facility] Last Admin: 02/11/18 13:26 Dose: 100 mg Sodium Chloride (Normal Saline -) 1,000 mls @ 75 mls/hr IV ASDIR [facility] Stop: 02/12/18 06:29 Isosorbide Mononitrate (Imdur -) 60 mg PO DAILY [facility] Last Admin: 02/11/18 11:51 Dose: 60 mg Loratadine (Claritin -) 10 mg PO DAILY [facility] Last Admin: 02/11/18 11:50 Dose: 10 mg Morphine Sulfate (Morphine Sulfate) 2 mg IVPUSH Q4H PRN PRN Reason: PAIN LEVEL 6-10 Multivitamins/Minerals/Vitamin C (Tab-A-Vit -) 1 tab PO DAILY [facility] Last Admin: 02/11/18 11:50 Dose: 1 tab Ondansetron HCl (Zofran Injection) 4 mg IVPUSH Q6H PRN PRN Reason: NAUSEA AND/OR VOMITING Oxycodone HCl (Roxicodone -) 5 mg PO Q4H PRN PRN Reason: PAIN LEVEL 6-10 Last Admin: 02/11/18 17:55 Dose: 5 mg Pantoprazole Sodium (Protonix -) 40 mg PO DAILY [facility] Last Admin: 02/11/18 11:51 Dose: 40 mg Warfarin Sodium (Coumadin -) 3 mg PO DAILY@1800 [facility] Last Admin: 02/11/18 17:55 Dose: 3 mg 87 year old woman with PMhx of Afib on Coumadin, Hypertension, HLD, CKD who presented s/p fall with femur fracture with Cr of 1.2. Pt denies any hx of CKD. #CKD #Femur fracture #Hypertension #Afib on Coumadin Renal function stable since admission Will give trial of isotonic saline x 12 hours check urine studies, UPCR BP is at goal on Atenolol Thank you Will follow John Bourne DO
[2018-02-11] MEDS ORDERED: SODIUM CHLORIDE 1,000 ML IV SCH (18:30)
[2018-02-11] MEDS: ATORVASTATIN CA 10 MG TABLET (FP) PO SCH (22:30)
[2018-02-12] MEDS: DOCUSATE SODIUM 100 MG CAPSULE (FP) PO SCH ×3 (06:10→21:45)
--- NOTE | 2018-02-12 08:36 | DS ---
Physical Examination Vital Signs: Vital Signs Temperature 98.4 F 02/12/18 05:55 Pulse Rate 91 H 02/12/18 05:55 Respiratory Rate 20 02/12/18 05:55 Blood Pressure 114/56 02/12/18 05:55 O2 Sat by Pulse Oximetry (%) 95 02/11/18 21:00 Cardiovascular: Yes: S1, S2 Respiratory: Yes: Regular, CTA Bilaterally Gastrointestinal: Yes: Normal Bowel Sounds, Soft Discharge Summary Reason For Visit: FRACTURE OF HIP/ATRIAL FIBRILATION Current Active Problems MAKAYLA (acute kidney injury) (Acute) Caregiver burden (Acute) Preop cardiovascular exam (Acute) Hospital Course: - Problems (1) Anemia--Acute blood loss Assessment/Plan: -follow laba -maintain ac (2) Afib Assessment/Plan: -Restart warfarin -[id number] lovenox -Vit K 5 mg SQ once given preop Code(s): I48.91 - UNSPECIFIED ATRIAL FIBRILLATION (3) Fall Assessment/Plan: -fall [place], lost her balance -No other falls in past 1 year (4) Hip fracture Assessment/Plan: -Acute left femoral intertrochanteric fracture -Ortho on board -Surgical intervention -Cleared by Cardiology Operative Date: 02/10/18 Pre-Operative Diagnosis: left basicervical hip fracture Operation: left hip intramedullary nail Implants: mar[place]armen gamma 3 [id number] with 95mm proximal locking screw and 37.5mm distal locking screw Post-Operative Diagnosis: Same as Pre-op Code(s): S72.009A - FRACTURE OF UNSP PART OF NECK OF UNSP FEMUR, INIT Qualifiers: Encounter type: initial encounter Fracture type: closed Laterality: left Qualified Code(s): S72.002A - Fracture of unspecified part of neck of left femur, initial encounter for closed fracture (5) MAKAYLA (acute kidney injury) Assessment/Plan: DC IVF monitor trend Code(s): N17.9 - ACUTE KIDNEY FAILURE, UNSPECIFIED Condition: Fair - Instructions Disposition: [facility] - Home Medications Comprehensive Discharge Medication List: Ambulatory Orders Atenolol [Tenormin -] 50 mg PO DAILY 05/18/15 Atorvastatin Ca [Lipitor] 10 mg PO HS 05/18/15 Calcium Carbonate [Caltrate 600] 600 mg PO DAILY 05/18/15 Folic Acid/Multivit-Min/Lutein [Centrum Silver Chewable Tablet] 1 each PO DAILY 05/18/15 Isosorbide Mononitrate [Imdur -] 60 mg PO DAILY 05/18/15 Loratadine [Claritin -] 10 mg PO DAILY 05/18/15 Pantoprazole Sodium [Protonix] 40 mg PO DAILY 05/18/15 Warfarin Sodium [Coumadin] 3 mg PO DAILY 05/18/15 Docusate Sodium [Colace -] 100 mg PO TID capsule 02/12/18 Multivitamins [Multivit ([facility])] 1 tab PO DAILY tab 02/12/18 oxyCODONE HCL [Roxicodone -] 5 mg PO Q4H PRN tablet MDD 4 02/12/18
[2018-02-12 08:45] LABS: HEMATOCRIT 27.3 % (32.4-45.2); HEMOGLOBIN 9.3 GM/dL (10.7-15.3); MCH 35.2 pg (25.7-33.7); MEAN CELL VOLUME 103.4 fl (80-96); MEAN PLT VOLUME 9.4 fl (7.5-11.1); PLATELET COUNT 113 K/MM3 (134-434); RBC 2.64 M/mm3 (3.60-5.2); RDW 14.9 % (11.6-15.6)
[2018-02-12 08:54] LABS: INR 1.24 (0.82-1.09)
[2018-02-12 09:25] LABS: ALBUMIN 2.7 g/dl (3.4-5.0); ANION GAP 10 (8-16); BLOOD UREA NITROGEN 24 mg/dL (7-18); CALCIUM 8.1 mg/dL (8.5-10.1); CHLORIDE 96 mmol/L (98-107); CO2 24 mmol/L (21-32); GLUCOSE,RANDOM 103 mg/dL (74-106); POTASSIUM 4.8 mmol/L (3.5-5.1); SODIUM 130 mmol/L (136-145)
[2018-02-12 09:28] LABS: ALK PHOS 85 U/L (45-117); BILIRUBIN,TOTAL 2.1 mg/dL (0.2-1.0); CREATININE 1.1 mg/dL (0.55-1.02); SGOT/AST 28 U/L (15-37); SGPT/ALT 21 U/L (12-78); TOT PROT 5.3 g/dl (6.4-8.2)
[2018-02-12 09:58] LABS: MACROCYTOSIS 1+; PLATELET ESTIMATE DECREASED
[2018-02-12] MEDS ORDERED: PT OWN MED DRAWER 7, Y5N ONE (10:43)
[2018-02-12] MEDS: MULTIVITAMINS (DAILY MVI) TABLET (FP) PO SCH (10:49)
[2018-02-12] MEDS: ISOSORBIDE MONONITRATE 60 MG TAB.SR.24H (FP) PO SCH (10:49)
[2018-02-12] MEDS: LORATADINE 10 MG TABLET PO SCH (10:49)
[2018-02-12] MEDS: ATENOLOL 50 MG TABLET (FP) PO SCH (10:49)
[2018-02-12] MEDS: PANTOPRAZOLE 40 MG TABLET (FP) PO SCH (10:49)
[2018-02-12] MEDS: ENOXAPARIN NA (PORCINE) 60 MG/0.6 ML DISP.SYRIN SQ SCH ×2 (10:50→21:45)
[2018-02-12] MEDS: CALCIUM (OYSTER SHELL) 500 MG TABLET (FP) PO SCH (10:51)
[2018-02-12] MEDS: POLYETHYLENE GLYCOL 3350 119 GM BTL PO SCH ×2 (10:54→21:45)
--- NOTE | 2018-02-12 12:34 | PN ---
Progress Note, Physician Chief Complaint: The patient seen in her room. 87 year old woman with PMhx of Afib on Coumadin, Hypertension, HLD, CKD who presented s/p fall with femur fracture with Cr of 1.2. Pt denies any hx of CKD. S/p surgery. Feels constipated. No SOB, chest pain, abd pain, N/V/D. Denies any NSAID use. History of Present Illness: This is a 87 year old woman with PMhx of Afib on Coumadin, Hypertension, HLD, CKD who presented s/p fall with femur fracture with Cr of 1.2. S/p hip surgery. The patient sitting by bed. - Current Medication List Current Medications: Active Medications Atenolol (Tenormin -) 50 mg PO DAILY [facility] Last Admin: 02/12/18 10:49 Dose: 50 mg Atorvastatin Calcium (Lipitor -) 10 mg PO HS [facility] Last Admin: 02/11/18 22:30 Dose: 10 mg Benzocaine/Menthol (Cepacol Lozenge -) 1 each MM QID PRN PRN Reason: SORE THROAT Last Admin: 02/11/18 20:38 Dose: 1 each Calcium Carbonate (Os-Joel 500mg -) 500 mg PO DAILY [facility] Last Admin: 02/12/18 10:51 Dose: 500 mg Docusate Sodium (Colace -) 100 mg PO TID [facility] Last Admin: 02/12/18 06:10 Dose: 100 mg Enoxaparin Sodium (Lovenox -) 60 mg SQ BID [facility] Last Admin: 02/12/18 10:50 Dose: 60 mg Isosorbide Mononitrate (Imdur -) 60 mg PO DAILY [facility] Last Admin: 02/12/18 10:49 Dose: 60 mg Loratadine (Claritin -) 10 mg PO DAILY [facility] Last Admin: 02/12/18 10:49 Dose: 10 mg Multivitamins/Minerals/Vitamin C (Tab-A-Vit -) 1 tab PO DAILY [facility] Last Admin: 02/12/18 10:49 Dose: 1 tab Ondansetron HCl (Zofran Injection) 4 mg IVPUSH Q6H PRN PRN Reason: NAUSEA AND/OR VOMITING Oxycodone HCl (Roxicodone -) 5 mg PO Q4H PRN PRN Reason: PAIN LEVEL 6-10 Last Admin: 02/11/18 17:55 Dose: 5 mg Pantoprazole Sodium (Protonix -) 40 mg PO DAILY [facility] Last Admin: 02/12/18 10:49 Dose: 40 mg Polyethylene Glycol (Miralax (For Daily Use) -) 17 gm PO BID [facility] Last Admin: 02/12/18 10:54 Dose: 17 grams Warfarin Sodium (Coumadin -) 3 mg PO DAILY@1800 [facility] Last Admin: 02/11/18 17:55 Dose: 3 mg - Objective Vital Signs: Vital Signs Temperature 98.4 F 02/12/18 05:55 Pulse Rate 91 H 02/12/18 05:55 Respiratory Rate 20 02/12/18 05:55 Blood Pressure 114/56 02/12/18 05:55 O2 Sat by Pulse Oximetry (%) 95 02/11/18 21:00 Constitutional: Yes: Anxious Eyes: Yes: Conjunctiva Clear HENT: Yes: Normocephalic Neck: Yes: Trachea Midline Respiratory: Yes: CTA Bilaterally, Diminished Gastrointestinal: Yes: Normal Bowel Sounds Musculoskeletal: Yes: Muscle Pain Edema: No Labs: CBC, BMP 02/12/18 08:00 02/12/18 08:00 INR, PTT INR 1.24 (0.82-1.09) H D 02/12/18 08:00 Problem List - Problems (1) CKD (chronic kidney disease) stage 3, GFR 30-59 ml/min Code(s): N18.3 - CHRONIC KIDNEY DISEASE, STAGE 3 (MODERATE) (2) Afib Code(s): I48.91 - UNSPECIFIED ATRIAL FIBRILLATION (3) HLD (hyperlipidemia) Code(s): E78.5 - HYPERLIPIDEMIA, UNSPECIFIED (4) HTN (hypertension) Code(s): I10 - ESSENTIAL (PRIMARY) HYPERTENSION (5) Hip fracture Code(s): S72.009A - FRACTURE OF UNSP PART OF NECK OF UNSP FEMUR, INIT Qualifiers: Encounter type: initial encounter Fracture type: closed Laterality: left Qualified Code(s): S72.002A - Fracture of unspecified part of neck of left femur, initial encounter for closed fracture Assessment/Plan This is a 87 year old woman with PMhx of Afib on Coumadin, Hypertension, HLD, CKD who presented s/p fall with femur fracture with Cr of 1.2 The patient's renal functions at baseline. Constipation may be multifactorial, due to restricted ambulatory status, and the effects of narcotic analgesics. ? Change analgesics to less constipating agents ??? [place]. Thank you. will follow with you. Sena Frederick MD
[2018-02-12] MEDS ORDERED: BISACODYL 10 MG SUPP.RECT RC ONE (15:15)
[2018-02-12] MEDS: WARFARIN NA 3 MG TABLET PO SCH (17:13)
[2018-02-12] MEDS: ATORVASTATIN CA 10 MG TABLET (FP) PO SCH (21:45)
[2018-02-12] MEDS: oxyCODONE HCL 5 MG TABLET PO PRN (22:23)
[2018-02-13] MEDS: oxyCODONE HCL 5 MG TABLET PO PRN (05:39)
[2018-02-13] MEDS: DOCUSATE SODIUM 100 MG CAPSULE (FP) PO SCH ×3 (05:39→21:57)
[2018-02-13 07:53] LABS: HEMATOCRIT 24.6 % (32.4-45.2); HEMOGLOBIN 8.4 GM/dL (10.7-15.3); MCHC 34.2 g/dl (32.0-36.0); MEAN CELL VOLUME 102.2 fl (80-96); MEAN PLT VOLUME 9.2 fl (7.5-11.1); PLATELET COUNT 151 K/MM3 (134-434); RBC 2.41 M/mm3 (3.60-5.2); RDW 14.5 % (11.6-15.6); WHITE BLOOD COUNT 12.2 K/mm3 (4.0-10.0)
--- NOTE | 2018-02-13 07:56 | DS ---
Physical Examination Vital Signs: Vital Signs Temperature 98.7 F 02/13/18 06:00 Pulse Rate 88 02/13/18 06:00 Respiratory Rate 20 02/13/18 06:00 Blood Pressure 118/68 02/13/18 06:00 O2 Sat by Pulse Oximetry (%) 98 02/12/18 22:00 Respiratory: Yes: Regular, CTA Bilaterally Gastrointestinal: Yes: Normal Bowel Sounds, Soft Discharge Summary Reason For Visit: FRACTURE OF HIP/ATRIAL FIBRILATION Current Active Problems MAKAYLA (acute kidney injury) (Acute) CKD (chronic kidney disease) stage 3, GFR 30-59 ml/min (Acute) Caregiver burden (Acute) Preop cardiovascular exam (Acute) Hospital Course: - Problems (1) Anemia--Acute blood loss Assessment/Plan: -follow laba -maintain ac (2) Afib Assessment/Plan: -Restart warfarin -[id number] lovenox -Vit K 5 mg SQ once given preop Code(s): I48.91 - UNSPECIFIED ATRIAL FIBRILLATION (3) Fall Assessment/Plan: -fall outside her house [place] to [place], lost her balance -No other falls in past 1 year (4) Hip fracture Assessment/Plan: -Acute left femoral intertrochanteric fracture -Ortho on board -Surgical intervention -Cleared by Cardiology Operative Date: 02/10/18 Pre-Operative Diagnosis: left basicervical hip fracture Operation: left hip intramedullary nail Implants: maricarmen gamma 3 [id number] with 95mm proximal locking screw and 37.5mm distal locking screw Post-Operative Diagnosis: Same as Pre-op Code(s): S72.009A - FRACTURE OF UNSP PART OF NECK OF UNSP FEMUR, INIT Qualifiers: Encounter type: initial encounter Fracture type: closed Laterality: left Qualified Code(s): S72.002A - Fracture of unspecified part of neck of left femur, initial encounter for closed fracture (5) MAKAYLA (acute kidney injury) Assessment/Plan: DC IVF monitor trend Code(s): N17.9 - ACUTE KIDNEY FAILURE, UNSPECIFIED Condition: Fair - Instructions [facility]: [facility] - Home Medications Comprehensive Discharge Medication List: Ambulatory Orders Atenolol [Tenormin -] 50 mg PO DAILY 05/18/15 Atorvastatin Ca [Lipitor] 10 mg PO HS 05/18/15 Calcium Carbonate [Caltrate 600] 600 mg PO DAILY 05/18/15 Folic Acid/Multivit-Min/Lutein [Centrum Silver Chewable Tablet] 1 each PO DAILY 05/18/15 Isosorbide Mononitrate [Imdur -] 60 mg PO DAILY 05/18/15 Loratadine [Claritin -] 10 mg PO DAILY 05/18/15 Pantoprazole Sodium [Protonix] 40 mg PO DAILY 05/18/15 Warfarin Sodium [Coumadin] 3 mg PO DAILY 05/18/15 Docusate Sodium [Colace -] 100 mg PO TID capsule 02/12/18 Multivitamins [Multivit ([facility] Formulary)] 1 tab PO DAILY tab 02/12/18 oxyCODONE HCL [Roxicodone -] 5 mg PO Q4H PRN tablet MDD 4 02/12/18
[2018-02-13 08:24] LABS: ALBUMIN 2.4 g/dl (3.4-5.0); ALK PHOS 89 U/L (45-117); ANION GAP 5 (8-16); BILIRUBIN,TOTAL 1.7 mg/dL (0.2-1.0); BLOOD UREA NITROGEN 21 mg/dL (7-18); CALCIUM 7.9 mg/dL (8.5-10.1); CHLORIDE 99 mmol/L (98-107); CO2 27 mmol/L (21-32); GLUCOSE,RANDOM 95 mg/dL (74-106); POTASSIUM 4.5 mmol/L (3.5-5.1); SGOT/AST 29 U/L (15-37); SGPT/ALT 21 U/L (12-78); SODIUM 131 mmol/L (136-145)
[2018-02-13 08:26] LABS: INR 1.22 (0.82-1.09); PROTHROMBIN TIME (PATIENT) 13.8 SEC (9.7-13.0)
--- NOTE | 2018-02-13 09:12 | DS ---
Physical Examination Vital Signs: Vital Signs Temperature 98.7 F 02/13/18 06:00 Pulse Rate 88 02/13/18 06:00 Respiratory Rate 20 02/13/18 06:00 Blood Pressure 118/68 02/13/18 06:00 O2 Sat by Pulse Oximetry (%) 98 02/12/18 22:00 Cardiovascular: Yes: Regular Rate and Rhythm Respiratory: Yes: Regular, CTA Bilaterally Gastrointestinal: Yes: Normal Bowel Sounds, Soft Labs: CBC, BMP 02/13/18 06:00 02/13/18 06:00 Discharge Summary Reason For Visit: FRACTURE OF HIP/ATRIAL FIBRILATION Current Active Problems MAKAYLA (acute kidney injury) (Acute) CKD (chronic kidney disease) stage 3, GFR 30-59 ml/min (Acute) Caregiver burden (Acute) Preop cardiovascular exam (Acute) Hospital Course: - Problems (1) Anemia--Acute Blood Loss Assessment/Plan: -follow laba -maintain ac (2) Afib Assessment/Plan: -Restart warfarin -DLE-nws-disiz lovenox -Vit K 5 mg SQ once given preop Code(s): I48.91 - UNSPECIFIED ATRIAL FIBRILLATION (3) Fall Assessment/Plan: -fall outside her house [place], lost her balance -No other falls in past 1 year (4) Hip fracture Assessment/Plan: -Acute left femoral intertrochanteric fracture -Ortho on board -Surgical intervention -Cleared by Cardiology Operative Date: 02/10/18 Pre-Operative Diagnosis: left basicervical hip fracture Operation: left hip intramedullary nail Implants: maricarmen gamma 3 [id number] with 95mm proximal locking screw and 37.5mm distal locking screw Post-Operative Diagnosis: Same as Pre-op Code(s): S72.009A - FRACTURE OF UNSP PART OF NECK OF UNSP FEMUR, INIT Qualifiers: Encounter type: initial encounter Fracture type: closed Laterality: left Qualified Code(s): S72.002A - Fracture of unspecified part of neck of left femur, initial encounter for closed fracture (5) MAKAYLA (acute kidney injury) Assessment/Plan: DC IVF monitor trend Code(s): N17.9 - ACUTE KIDNEY FAILURE, UNSPECIFIED Condition: Fair - Instructions Disposition: [facility] - Home Medications Comprehensive Discharge Medication List: Ambulatory Orders Atenolol [Tenormin -] 50 mg PO DAILY 05/18/15 Atorvastatin Ca [Lipitor] 10 mg PO HS 05/18/15 Calcium Carbonate [Caltrate 600] 600 mg PO DAILY 05/18/15 Folic Acid/Multivit-Min/Lutein [Centrum Silver Chewable Tablet] 1 each PO DAILY 05/18/15 Isosorbide Mononitrate [Imdur -] 60 mg PO DAILY 05/18/15 Loratadine [Claritin -] 10 mg PO DAILY 05/18/15 Pantoprazole Sodium [Protonix] 40 mg PO DAILY 05/18/15 Warfarin Sodium [Coumadin] 3 mg PO DAILY 05/18/15 Docusate Sodium [Colace -] 100 mg PO TID capsule 02/12/18 Multivitamins [Multivit ([facility] Formulary)] 1 tab PO DAILY tab 02/12/18 oxyCODONE HCL [Roxicodone -] 5 mg PO Q4H PRN tablet MDD 4 02/12/18 Enoxaparin [Lovenox -] 60 mg SQ BID disp.syrin 02/13/18
[2018-02-13] MEDS ORDERED: PT OWN MED DRAWER 7, Y5N ONE (09:51)
[2018-02-13] MEDS: CALCIUM (OYSTER SHELL) 500 MG TABLET (FP) PO SCH (09:57)
[2018-02-13] MEDS: PANTOPRAZOLE 40 MG TABLET (FP) PO SCH (09:58)
[2018-02-13] MEDS: ISOSORBIDE MONONITRATE 60 MG TAB.SR.24H (FP) PO SCH (09:58)
[2018-02-13] MEDS: LORATADINE 10 MG TABLET PO SCH (09:58)
[2018-02-13] MEDS: MULTIVITAMINS (DAILY MVI) TABLET (FP) PO SCH (09:58)
[2018-02-13] MEDS: ENOXAPARIN NA (PORCINE) 60 MG/0.6 ML DISP.SYRIN SQ SCH ×2 (09:58→21:56)
[2018-02-13] MEDS: ATENOLOL 50 MG TABLET (FP) PO SCH (09:59)
[2018-02-13] MEDS: POLYETHYLENE GLYCOL 3350 119 GM BTL PO SCH ×2 (10:00→21:57)
[2018-02-13 11:23] LABS: ANISOCYTOSIS 1+; MACROCYTOSIS 1+; OVALOCYTE 1+
[2018-02-13 15:27] LABS: HEMATOCRIT 24.6 % (32.4-45.2); HEMOGLOBIN 8.3 GM/dL (10.7-15.3); MCH 34.6 pg (25.7-33.7); MCHC 33.6 g/dl (32.0-36.0); MEAN CELL VOLUME 102.9 fl (80-96); MEAN PLT VOLUME 9.4 fl (7.5-11.1); PLATELET COUNT 194 K/MM3 (134-434); RBC 2.39 M/mm3 (3.60-5.2); RDW 15.3 % (11.6-15.6); WHITE BLOOD COUNT 13.2 K/mm3 (4.0-10.0)
[2018-02-13 15:46] LABS: PLATELET ESTIMATE ADEQUATE
[2018-02-13] MEDS: WARFARIN NA 3 MG TABLET PO SCH (17:13)
[2018-02-13] MEDS: ATORVASTATIN CA 10 MG TABLET (FP) PO SCH (21:57)
[2018-02-14] MEDS: DOCUSATE SODIUM 100 MG CAPSULE (FP) PO SCH ×3 (06:38→23:00)
[2018-02-14 07:56] LABS: HEMATOCRIT 22.3 % (32.4-45.2); HEMOGLOBIN 7.6 GM/dL (10.7-15.3); MCH 34.8 pg (25.7-33.7); MEAN CELL VOLUME 102.3 fl (80-96); MEAN PLT VOLUME 8.6 fl (7.5-11.1); PLATELET COUNT 202 K/MM3 (134-434); RBC 2.18 M/mm3 (3.60-5.2); RDW 14.9 % (11.6-15.6); WHITE BLOOD COUNT 13.4 K/mm3 (4.0-10.0)
--- NOTE | 2018-02-14 08:20 | PN ---
Progress Note, Physician History of Present Illness: feels better - Current Medication List Current Medications: Active Medications Atenolol (Tenormin -) 50 mg PO DAILY [facility] Last Admin: 02/13/18 09:59 Dose: 50 mg Atorvastatin Calcium (Lipitor -) 10 mg PO HS [facility] Last Admin: 02/13/18 21:57 Dose: 10 mg Benzocaine/Menthol (Cepacol Lozenge -) 1 each MM QID PRN PRN Reason: SORE THROAT Last Admin: 02/11/18 20:38 Dose: 1 each Calcium Carbonate (Os-Joel 500mg -) 500 mg PO DAILY [facility] Last Admin: 02/13/18 09:57 Dose: 500 mg Docusate Sodium (Colace -) 100 mg PO TID [facility] Last Admin: 02/14/18 06:38 Dose: 100 mg Enoxaparin Sodium (Lovenox -) 60 mg SQ BID [facility] Last Admin: 02/13/18 21:56 Dose: 60 mg Isosorbide Mononitrate (Imdur -) 60 mg PO DAILY [facility] Last Admin: 02/13/18 09:58 Dose: 60 mg Loratadine (Claritin -) 10 mg PO DAILY [facility] Last Admin: 02/13/18 09:58 Dose: 10 mg Multivitamins/Minerals/Vitamin C (Tab-A-Vit -) 1 tab PO DAILY [facility] Last Admin: 02/13/18 09:58 Dose: 1 tab Ondansetron HCl (Zofran Injection) 4 mg IVPUSH Q6H PRN PRN Reason: NAUSEA AND/OR VOMITING Oxycodone HCl (Roxicodone -) 5 mg PO Q4H PRN PRN Reason: PAIN LEVEL 6-10 Last Admin: 02/13/18 05:39 Dose: 5 mg Pantoprazole Sodium (Protonix -) 40 mg PO DAILY [facility] Last Admin: 02/13/18 09:58 Dose: 40 mg Polyethylene Glycol (Miralax (For Daily Use) -) 17 gm PO BID [facility] Last Admin: 02/13/18 21:57 Dose: 17 grams Warfarin Sodium (Coumadin -) 3 mg PO DAILY@1800 [facility] Last Admin: 02/13/18 17:13 Dose: 3 mg - Objective Vital Signs: Vital Signs Temperature 98.4 F 02/14/18 02:00 Pulse Rate 92 H 02/14/18 02:00 Respiratory Rate 20 02/14/18 02:00 Blood Pressure 114/62 02/14/18 02:00 O2 Sat by Pulse Oximetry (%) 98 02/13/18 22:00 Cardiovascular: Yes: Pulse Irregular, S1, S2 Respiratory: Yes: Regular, CTA Bilaterally Gastrointestinal: Yes: Normal Bowel Sounds, Soft Labs: CBC, BMP 02/14/18 06:00 02/13/18 06:00 INR, PTT INR 1.22 (0.82-1.09) H 02/13/18 06:00 Assessment/Plan - Problems (1) Caregiver burden Assessment/Plan: -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 Code(s): Z63.6 - DEPENDENT RELATIVE NEEDING CARE AT HOME (2) Afib Assessment/Plan: -Restart warfarin -INR-low await todays results -dc lovenox due to anemia -Vit K 5 mg SQ once given preop Code(s): I48.91 - UNSPECIFIED ATRIAL FIBRILLATION (3) Fall Assessment/Plan: -fall outside [place] house [place], lost her balance -No other falls in past 1 year (4) Hip fracture Assessment/Plan: -Acute left femoral intertrochanteric fracture -Ortho on board -Surgical intervention -Cleared by Cardiology Operative Date: 02/10/18 Pre-Operative Diagnosis: left basicervical hip fracture Operation: left hip intramedullary nail Implants: maricarmen gamma 3 [id number] with 95mm proximal locking screw and 37.5mm distal locking screw Post-Operative Diagnosis: Same as Pre-op Code(s): S72.009A - FRACTURE OF UNSP PART OF NECK OF UNSP FEMUR, INIT Qualifiers: Encounter type: initial encounter Fracture type: closed Laterality: left Qualified Code(s): S72.002A - Fracture of unspecified part of neck of left femur, initial encounter for closed fracture (5) MAKAYLA (acute kidney injury) Assessment/Plan: DC IVF monitor trend Code(s): N17.9 - ACUTE KIDNEY FAILURE, UNSPECIFIED (6) Anemia--acute blood loss anemia Assessment/Plan: DC lovenox monitor inr transfuse prbc
[2018-02-14] MEDS ORDERED: PT OWN MED DRAWER 7, Y5N ONE (09:02)
[2018-02-14] MEDS: ENOXAPARIN NA (PORCINE) 60 MG/0.6 ML DISP.SYRIN SQ SCH (09:09)
[2018-02-14] MEDS: ISOSORBIDE MONONITRATE 60 MG TAB.SR.24H (FP) PO SCH (09:10)
[2018-02-14] MEDS: LORATADINE 10 MG TABLET PO SCH (09:10)
[2018-02-14] MEDS: PANTOPRAZOLE 40 MG TABLET (FP) PO SCH (09:10)
[2018-02-14] MEDS: CALCIUM (OYSTER SHELL) 500 MG TABLET (FP) PO SCH (09:10)
[2018-02-14] MEDS: MULTIVITAMINS (DAILY MVI) TABLET (FP) PO SCH (09:10)
[2018-02-14] MEDS: ATENOLOL 50 MG TABLET (FP) PO SCH (09:11)
[2018-02-14] MEDS: POLYETHYLENE GLYCOL 3350 119 GM BTL PO SCH ×2 (09:12→23:00)
[2018-02-14 09:29] LABS: MACROCYTOSIS 1+; PLATELET ESTIMATE NORMAL; TARGET CELLS 1+
[2018-02-14] MEDS ORDERED: FUROSEMIDE 40 MG/4 ML INJECTABLE VIAL IVPUSH ONE ×2 (10:00→18:15)
[2018-02-14 10:39] LABS: INR 1.22 (0.82-1.09); PROTHROMBIN TIME (PATIENT) 13.8 SEC (9.7-13.0)
--- NOTE | 2018-02-14 10:42 | OP ---
DATE OF OPERATION: 02/10/2018 POSTOPERATIVE DIAGNOSIS: Left basicervical hip fracture. POSTOPERATIVE DIAGNOSIS: Left basicervical hip fracture. PROCEDURE: Left hip intramedullary nail. SURGEON: Sampson Doan MD PORTFOLIO ANALYST: JASMIN Kam whose skillful assistance was necessary for the safe and timely performance of this procedure. IMPLANTS: Svetlana Gamma 3 system 10 x 170 x 125 with 95-mm proximal lag screw and 37.5-mm distal locking screw. COMPLICATIONS: Divergent screw hole with removal of initial screw. INDICATIONS: This is a pleasant 87-year-old female who had suffered a trip and fall. She was found to have a displaced basicervical hip fracture. Treatment options including nonoperative versus operative management were discussed. Operative risks were reviewed in detail including bleeding, infection, neurovascular injury, need for further surgery, postoperative pain and stiffness, nonunion, malunion, hardware failure or cutout. We discussed medical risks such as heart attack, stroke, DVT, PE, and . We reviewed the alternative of bedrest with potential for significant medical complications such as pneumonia and bed sores and loss of ambulatory ability. We discussed recovery from surgery. I reviewed the perioperative use of antibiotic and DVT prophylaxis. The patient voiced understanding and elected to proceed. DESCRIPTION OF PROCEDURE: The patient was brought to the operating room where general anesthesia was administered. The patient was placed onto the fracture table. Careful padding of the bony prominences. The left lower extremity was placed into position of traction, adduction, and internal rotation. A preoperative radiograph demonstrated satisfactory reduction. The patient was then prepped and draped in the usual sterile fashion. A preoperative dose of antibiotics was given, and the usual time-out procedure was performed. The incision was now planned out just proximal to the greater trochanter. This was made through the skin and subcutaneous tissue. A guidewire was now placed onto the tip of the greater trochanter and advanced into the medullary canal under hand power. Guidewire placement was confirmed fluoroscopically in 2 planes. The opening reamer was then passed down to the level of the lesser trochanter. This was then removed along with the guidewire. The nail was now inserted into the femoral canal. Nail placement was confirmed fluoroscopically. The trocar was now inserted through a 2nd incision in the lateral thigh. It was inserted down to the level of the bone. Guidewire was now drilled through the center of the femoral neck and through the center of the femoral head. Guidewire placement was confirmed fluoroscopically in 2 planes. The guidewire was now measured, and a 95-mm screw was chosen. It was then overreamed to 90 mm. The reamer was then removed. The screw was inserted. The set screw was then inserted and backed off a quarter turn to allow for compression. Screw placement was confirmed fluoroscopically in 2 planes. This trocar was then removed. The distal locking trocar was then inserted through the 3rd small incision. The screw was drilled. The 2nd screw was inserted. However, on insertion it was felt that the screw was entering at a bit of an obtuse angle. Fluoroscopy demonstrated this screw was posterior to the nail. The screw was removed. After retightening the jig, the drill was passed again and this time was placed through the correct orientation. This screw was measured to be at 37.5. It was inserted, and fluoroscopy confirmed that the screw was now placed correctly within the nail. At this point, the wounds were irrigated. The jig was removed. Fluoroscopy in 2 planes confirmed satisfactory fracture reduction as well as hardware placement. Deep tissue was approximated using 0 Vicryl. The subcutaneous tissue was approximated using 2-0 Vicryl. The skin was closed using running 3-0 nylon. Sterile dressings were placed. The patient was extubated and transferred to the recovery room in stable condition. Dennis [id number]
--- NOTE | 2018-02-14 18:05 | PN ---
Progress Note (short form) - Note Progress Note: 87F s/p IM nail L hip pod 1 -comf in bed -minimal pain -was lightheaded before blood but better now Last Vital Signs Temp Pulse Resp BP Pulse Ox 98.4 F 100 H 22 101/48 98 02/14/18 14:17 02/14/18 14:17 02/14/18 14:17 02/14/18 14:17 02/13/18 22:00 LLE dressings CDI calves soft NT NVID Abnormal Lab Results 02/14/18 02/14/18 02/14/18 06:00 10:00 10:00 WBC 13.4 H RBC 2.18 L Hgb 7.6 L Hct 22.3 L MCV 102.3 H MCH 34.8 H Lymphocytes % (Manual) 7.9 L D Monocytes % (Manual) 20 H PT with INR 13.80 H INR 1.22 H Crossmatch See Detail a/p: POD 4 L femoral nail -pt suffering from acute post op anemia, likely secondary to her previous anticoagulation in combination with a hip fracture and surgical care, agree with transfusion -continue PT -stable for DC if hct appropriately improved tomorrow -plan follow up 1-2 weeks to remove sutures
[2018-02-14] MEDS: WARFARIN NA 3 MG TABLET PO SCH (18:11)
[2018-02-14] MEDS: ATORVASTATIN CA 10 MG TABLET (FP) PO SCH (23:00)
[2018-02-15 06:14] VITALS: TEMP 97.6
[2018-02-15] MEDS: DOCUSATE SODIUM 100 MG CAPSULE (FP) PO SCH ×2 (06:24→13:43)
--- NOTE | 2018-02-15 07:46 | DS ---
Physical Examination Vital Signs: Vital Signs Temperature 97.6 F 02/15/18 06:00 Pulse Rate 80 02/15/18 06:00 Respiratory Rate 20 02/15/18 06:00 Blood Pressure 122/64 02/15/18 06:00 O2 Sat by Pulse Oximetry (%) 98 02/14/18 21:00 Cardiovascular: Yes: S1, S2 Respiratory: Yes: Regular, CTA Bilaterally Gastrointestinal: Yes: Normal Bowel Sounds, Soft Labs: CBC, BMP 02/14/18 06:00 02/13/18 06:00 Discharge Summary Reason For Visit: FRACTURE OF HIP/ATRIAL FIBRILATION Current Active Problems MAKAYLA (acute kidney injury) (Acute) Acute blood loss anemia (Acute) CKD (chronic kidney disease) stage 3, GFR 30-59 ml/min (Acute) Caregiver burden (Acute) Preop cardiovascular exam (Acute) Hospital Course: (1) Caregiver burden Assessment/Plan: -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 Code(s): Z63.6 - DEPENDENT RELATIVE NEEDING CARE AT HOME (2) Afib Assessment/Plan: -Restart warfarin -INR-low await todays results -dc lovenox due to anemia -Vit K 5 mg SQ once given preop Code(s): I48.91 - UNSPECIFIED ATRIAL FIBRILLATION (3) Fall Assessment/Plan: -fall outside [place] house [place], lost her balance -No other falls in past 1 year (4) Hip fracture Assessment/Plan: -Acute left femoral intertrochanteric fracture -Ortho on board -Surgical intervention -Cleared by Cardiology Operative Date: 02/10/18 Pre-Operative Diagnosis: left basicervical hip fracture Operation: left hip intramedullary nail Implants: maricarmen gamma 3 [id number] with 95mm proximal locking screw and 37.5mm distal locking screw Post-Operative Diagnosis: Same as Pre-op Code(s): S72.009A - FRACTURE OF UNSP PART OF NECK OF UNSP FEMUR, INIT Qualifiers: Encounter type: initial encounter Fracture type: closed Laterality: left Qualified Code(s): S72.002A - Fracture of unspecified part of neck of left femur, initial encounter for closed fracture (5) MAKAYLA (acute kidney injury) Assessment/Plan: DC IVF monitor trend Code(s): N17.9 - ACUTE KIDNEY FAILURE, UNSPECIFIED (6) Anemia--acute blood loss anemia Assessment/Plan: DC lovenox monitor inr s/p transfusion of prbc (7) Leukocytosis Assessment/Plan: -AFebrile- -ID Consult dc to snf if ok with ID Condition: Fair - Instructions Disposition: [facility] - Home Medications Comprehensive Discharge Medication List: Ambulatory Orders Atenolol [Tenormin -] 50 mg PO DAILY 05/18/15 Atorvastatin Ca [Lipitor] 10 mg PO HS 05/18/15 Calcium Carbonate [Caltrate 600] 600 mg PO DAILY 05/18/15 Folic Acid/Multivit-Min/Lutein [Centrum Silver Chewable Tablet] 1 each PO DAILY 05/18/15 Isosorbide Mononitrate [Imdur -] 60 mg PO DAILY 05/18/15 Loratadine [Claritin -] 10 mg PO DAILY 05/18/15 Pantoprazole Sodium [Protonix] 40 mg PO DAILY 05/18/15 Warfarin Sodium [Coumadin] 3 mg PO DAILY 05/18/15 Docusate Sodium [Colace -] 100 mg PO TID capsule 02/12/18 Multivitamins [Multivit ([facility] Formulary)] 1 tab PO DAILY tab 02/12/18 oxyCODONE HCL [Roxicodone -] 5 mg PO Q4H PRN tablet MDD 4 02/12/18 Enoxaparin [Lovenox -] 60 mg SQ BID disp.syrin 02/13/18
[2018-02-15 08:09] LABS: SERUM IRON SATURATION 6 % (15-55); TOTAL IRON BINDING CAPACITY 283 ug/dL (250-450); UIBC 265 ug/dL (118-369)
[2018-02-15 08:44] LABS: HEMATOCRIT 29.9 % (32.4-45.2); HEMOGLOBIN 10.4 GM/dL (10.7-15.3); MCH 33.4 pg (25.7-33.7); MCHC 34.9 g/dl (32.0-36.0); MEAN CELL VOLUME 95.9 fl (80-96); MEAN PLT VOLUME 8.4 fl (7.5-11.1); PLATELET COUNT 197 K/MM3 (134-434); RBC 3.12 M/mm3 (3.60-5.2); RDW 15.8 % (11.6-15.6); WHITE BLOOD COUNT 14.4 K/mm3 (4.0-10.0)
[2018-02-15 08:45] LABS: INR 1.18 (0.82-1.09); PROTHROMBIN TIME (PATIENT) 13.3 SEC (9.7-13.0)
[2018-02-15 09:04] LABS: ALBUMIN 2.5 g/dl (3.4-5.0); ALK PHOS 93 U/L (45-117); ANION GAP 11 (8-16); BILIRUBIN,TOTAL 3.5 mg/dL (0.2-1.0); BLOOD UREA NITROGEN 32 mg/dL (7-18); CALCIUM 8.1 mg/dL (8.5-10.1); CHLORIDE 94 mmol/L (98-107); CO2 27 mmol/L (21-32); CREATININE 1.3 mg/dL (0.55-1.02); GLUCOSE,RANDOM 90 mg/dL (74-106); POTASSIUM 3.7 mmol/L (3.5-5.1); SGOT/AST 63 U/L (15-37); SGPT/ALT 36 U/L (12-78); SODIUM 132 mmol/L (136-145); TOT PROT 5.4 g/dl (6.4-8.2)
[2018-02-15 09:39] LABS: MACROCYTOSIS 1+; PLATELET ESTIMATE NORMAL
[2018-02-15] MEDS ORDERED: HEPARIN NA (PORCINE) 5,000 UNITS/ML 1ML VIAL SQ SCH (10:00)
[2018-02-15] MEDS: ISOSORBIDE MONONITRATE 60 MG TAB.SR.24H (FP) PO SCH (10:15)
[2018-02-15] MEDS: CALCIUM (OYSTER SHELL) 500 MG TABLET (FP) PO SCH (10:15)
[2018-02-15] MEDS: POLYETHYLENE GLYCOL 3350 119 GM BTL PO SCH (10:15)
[2018-02-15] MEDS: LORATADINE 10 MG TABLET PO SCH (10:15)
[2018-02-15] MEDS: PANTOPRAZOLE 40 MG TABLET (FP) PO SCH (10:16)
[2018-02-15] MEDS: ATENOLOL 50 MG TABLET (FP) PO SCH (10:16)
[2018-02-15] MEDS: MULTIVITAMINS (DAILY MVI) TABLET (FP) PO SCH (10:16)
--- NOTE | 2018-02-15 12:30 | PN ---
Progress Note (short form) - Note Progress Note: ID Consult dictated POD # 5 IM nail L femur s/p comminuted intertrochanteric fracture Leukocytosis ? leukemoid rxn Elevated TBR Obtain BC Observe off antibiotics No objection to discharge to rehab from ID standpoint Follow up CBC, LFTs as outpatient
--- NOTE | 2018-02-15 13:33 | CONS ---
DATE OF CONSULTATION: DATE OF DICTATION: 02/15/2018 HISTORY: The patient is an 87-year-old female who is evaluated for leukocytosis. She was admitted to the hospital on February 10, 2018 after a fall with left hip trauma. She was found to have a comminuted left intertrochanteric fracture of the left femur. She was taken to the operating room where an intramedullary nail was placed. Her hospital course has been complicated by elevated white blood cell count. Since surgery, she has had a white blood cell count ranging from 11 to now 14. She has remained afebrile. She is out of bed to chair. She is well appearing and nontoxic appearing. She offers no focal complaint other than some postoperative left hip discomfort. She denies any chest pain, shortness of breath, cough, or sputum production. No dysuria or hematuria. No vomiting or diarrhea. PAST MEDICAL HISTORY: Positive for atrial fibrillation, hypertension, hyperlipidemia, chronic kidney disease. PAST SURGICAL HISTORY: Status post cholecystectomy. ALLERGIES: PENICILLIN. MEDICATIONS: Include atenolol, Lipitor, Imdur, Protonix, Coumadin. SOCIAL HISTORY: She lives in the community. Nonsmoker, nondrinker. SYSTEMS REVIEW: Neurologic: No loss of consciousness, seizure activity, focal weakness. Cardiac: Negative chest pain or palpitations. Respiratory: Negative cough or sputum production. Gastrointestinal: Negative vomiting or diarrhea. Genitourinary: Negative for urinary tract infection. LABORATORY DATA: White count 14.4 with 70 neutrophils, 7 lymphocytes, 19 monocytes, hematocrit 29.9, platelet count 197, BUN 32, creatinine 1.3, total bilirubin 3.5, alkaline phosphatase 95. AST 63. Urinalysis 8 white cells. Chest x-ray shows an elevated left hemidiaphragm. No infiltrate. PHYSICAL EXAMINATION: General: She is awake and alert. She is out of bed to chair. She is nontoxic appearing. Vital Signs: Temperature 97.6, blood pressure 122/64, pulse 80 and regular, respirations 20 per minute. HEENT: Sclerae anicteric. Heart: Sounds S1, S2. Lungs: Bronchial breath sounds bilaterally. A few crepitations at the bases bilaterally. Abdomen: Soft. No tenderness elicited. No mass, rebound, or rigidity. No right upper quadrant tenderness. Extremities: Positive for edema. Surgical dressing in place left hip. IMPRESSION: 1. Postoperative day number 5 intramedullary nailing left femur status post comminuted intertrochanteric fracture. 2. Leukocytosis, possible leukomoid reaction. 3. Elevated bilirubin. PLAN: Source of leukocytosis not clear. May represent leukomoid reaction secondary to hip fracture. She has no localizing signs or symptoms of infection and has been afebrile and is nontoxic appearing. No abdominal tenderness to suggest biliary tract pathology in the setting of elevated total bilirubin. We will obtain blood cultures, observe off antibiotic therapy. No objection to discharge to rehabilitation from ID standpoint. Should she have a persistently elevated white blood cell count and total bilirubin, would obtain sonogram of the liver as an outpatient. Patient is status post cholecystectomy. Thank you for the kind referral. LAUREANO BUNN M.D. [id number]
[2018-02-15 13:53] VITALS: BP 120/70; PULSE 84
[2018-02-15] MEDS ORDERED: WARFARIN NA 5 MG TABLET (UD) PO SCH (18:00)
== END 2018-02-15 15:11 | DRG 481 ==
LOC: JER 17:32 → J5S 02-10 00:15 → J6S 02-11 21:03
PROVIDERS: ADMIT Internal Medicine; ATTEND Family Medicine
PROC: 0QS706Z Reposition Left Upper Femur with Intramedullary Internal Fixation Device, Open Approach (ICD-10-PCS; principal; 2018-02-10 12:30)
DX: S72.042A Displaced fracture of base of neck of left femur, initial encounter for closed fracture (principal); I13.0 Hypertensive heart and chronic kidney disease with heart failure and stage 1 through stage 4 chronic kidney disease, or unspecified chronic kidney disease; N17.9 Acute kidney failure, unspecified; D62 Acute posthemorrhagic anemia; I48.2 Chronic atrial fibrillation; E78.5 Hyperlipidemia, unspecified; W01.0XXA Fall on same level from slipping, tripping and stumbling without subsequent striking against object, initial encounter; Y93.89 Activity, other specified; Y92.89 Other specified places as the place of occurrence of the external cause; Y99.8 Other external cause status; Z79.01 Long term (current) use of anticoagulants; I50.9 Heart failure, unspecified; N18.3 Chronic kidney disease, stage 3 (moderate); Z63.6 Dependent relative needing care at home
CPT/HCPCS: 36415; 36430; 70450-TC; 71045-TC-FY; 72125-TC; 73523-TC-FY; 73552-TC-LT-FY; 76000-TC-FY; 80048; 80053; 81003; 81015; 82570; 82728; 83540; 83550; 84100; 84156; 84300; 85025; 85610; 85730; 86850; 86900; 86901; 86922; 87040; 87086; 93005; 93010; 94760; 97116-GP; 97161-GP; 99285-25; J1644; J7030; P9038; P9058